=== PATIENT | male | born 1980 | race African-American/Black ===

== ENCOUNTER 2016-05-11 10:07 | Emergency (ER) | payer MEDICAID ==
[~2016-05-11] VITALS: Ht 162.6 cm; Wt 68.0 kg
[~2016-05-11 10:07] MED LIST: AMLO5TAB2 PO; ATOR40TA16 PO; DOXY1LIQ3 PO; HYDR12.56 PO; VENTAER INH; ZITHTAB PO
[2016-05-11 10:09] VITALS: BP 130/92; PULSE 86; RESP 16; TEMP 97.7; O2SAT 95
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
[2016-05-11] MEDS ORDERED: MECLIZINE HCL 25 MG TAB PO ONE (10:45)
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
[2016-05-11] MEDS ORDERED: CIPR0.3S RIGHT EAR (12:12)
[2016-05-11] MEDS ORDERED: MECL-62 PO (12:12)
[2016-05-11 12:33] VITALS: BP 133/88
== END 2016-05-11 12:34 | disposition home or self-care (01) ==
LOC: NEPE 10:07
DX: H72.91 Unspecified perforation of tympanic membrane, right ear (principal); Y04.2XXA Assault by strike against or bumped into by another person, initial encounter
CPT/HCPCS: 70450

== ENCOUNTER 2016-06-13 10:12 | Emergency (ER) | payer MEDICAID ==
[~2016-06-13] VITALS: Ht 162.6 cm; Wt 76.0 kg
[~2016-06-13 10:12] MED LIST changes: +CIPR0.3S RIGHT EAR; -DOXY1LIQ3 PO; +MECL-62 PO; -ZITHTAB PO
[2016-06-13 10:15] VITALS: BP 140/76; PULSE 100; RESP 20; TEMP 97.8; O2SAT 96
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
[2016-06-13] MEDS ORDERED: KETOROLAC TROMETHAMINE 60 MG/2 ML (IM) VIAL IM ONE (10:45)
[2016-06-13] MEDS ORDERED: TETANUS/DIPHTHERIA TOXOID PEDIATRIC 0.5 ML VIAL IM ONE (10:45)
[2016-06-13] MEDS ORDERED: TETANUS/DIPHTHERIA TOXOID ADULT 0.5 ML VIAL IM ONE (11:00)
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
[2016-06-13] MEDS ORDERED: IBUP800T23 PO (12:36)
[2016-06-13] MEDS ORDERED: TRAM50TA PO (12:36)
== END 2016-06-13 12:45 | disposition home or self-care (01) ==
LOC: NEPB 10:12
DX: S61.210A Laceration without foreign body of right index finger without damage to nail, initial encounter (principal); S97.81XA Crushing injury of right foot, initial encounter; I10 Essential (primary) hypertension; E78.00 Pure hypercholesterolemia, unspecified; F17.210 Nicotine dependence, cigarettes, uncomplicated; F17.220 Nicotine dependence, chewing tobacco, uncomplicated; Y03.0XXA Assault by being hit or run over by motor vehicle, initial encounter; W25.XXXA Contact with sharp glass, initial encounter; Z23 Encounter for immunization
CPT/HCPCS: 73630; 90471; 90714; 96372; 99283; E0113; J1885

== ENCOUNTER 2016-08-14 23:11 | Inpatient (IN) | payer MEDICAID ==
[~2016-08-14 23:11] MED LIST changes: +IBUP800T23 PO; +TRAM50TA PO
[2016-08-14] MEDS ORDERED: MIDAZOLAM HCL 5 MG/ML VIAL (1 ML) ONE ×2 (23:19→23:45)
[2016-08-14 23:38] LABS: AUTOMATED NEUTROPHIL # 2.8 TH/MM3 (1.8-7.7); BASOPHIL # 0.1 TH/MM3 (0-0.2); EOSINOPHIL % 0.8 % (0.0-4.0); HEMATOCRIT 40.9 % (39.0-51.0); HEMO FLAGS DIFF FINAL; LYMPH % 32.5 % (9.0-44.0); LYMPHOCYTE # 1.7 TH/MM3 (1.0-4.8); MEAN CELL VOLUME 91.6 FL (80.0-100.0); MEAN CORPUSCULAR HEMOGLOBIN 32.1 PG (27.0-34.0); MEAN CORPUSCULAR HGB CONC 35.1 % (32.0-36.0); MONO % 11.2 % (0.0-8.0); NEUT % 54.5 % (16.0-70.0); PLATELET COUNT 362 TH/MM3 (150-450); RED BLOOD COUNT 4.47 MIL/MM3 (4.50-5.90); RED CELL DISTRIBUTION WIDTH 12.4 % (11.6-17.2); WHITE BLOOD COUNT 5.1 TH/MM3 (4.0-11.0)
[2016-08-14 23:47] LABS: APTT (PATIENT) 23.3 SEC (24.3-30.1); INTERNATIONAL NORMALIZED RATIO 0.9 RATIO; PROTHROMBIN TIME - PATIENT 10.4 SEC (9.8-11.6)
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
[2016-08-14] MEDS ORDERED: IOHEXOL 350 MG/ML 10 ML VIAL (for RAD DIAG) IV ONE (23:49)
[2016-08-14 23:51] LABS: I-STAT POTASSIUM 3.6 MMOL/L (3.5-4.9)
[2016-08-14] MEDS ORDERED: fentaNYL CITRATE 250 MCG/5 ML AMP ONE (23:51)
[2016-08-14] MEDS ORDERED: FLUMAZENIL 0.5 MG/5 ML VIAL ONE (23:54)
[2016-08-15] VITALS (7 sets, daily range): BP systolic 114–141; BP diastolic 61–89; PULSE 79–110; RESP 16–20; TEMP 96.2–97.5; O2SAT 95–100
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
[2016-08-15] MEDS ORDERED: SODIUM CHLORIDE 0.9% FLUSH 10 ML FLUSH IV FLUSH PRN (00:15)
[2016-08-15] MEDS ORDERED: HYDROmorphone HCL PF 1 MG/ML VIAL IVP PRN ×3 (00:15→05:00)
[2016-08-15] MEDS ORDERED: CHLORHEXIDINE GLUCONATE 2 % 1 PACK (2 CLOTHS) TOP PRN (00:15)
[2016-08-15] MEDS ORDERED: MISCELLANEOUS NURSING INFORMATION XX SCH (00:15)
[2016-08-15] MEDS ORDERED: ONDANSETRON HCL 4 MG/2 ML VIAL IV PRN (00:15)
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
[2016-08-15] MEDS: LACTATED RINGER'S 1000 ML INJ 1,000 ML IV SCH ×2 (00:41→07:15)
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
[2016-08-15] MEDS ORDERED: OMEP40CA2 PO (01:16)
[2016-08-15] MEDS ORDERED: QUET150XR PO (01:16)
[2016-08-15] MEDS ORDERED: MECL-62 PO (01:16)
[2016-08-15] MEDS ORDERED: PRAZ5CAP PO (01:16)
[2016-08-15] MEDS ORDERED: BUSP10TA PO (01:16)
[2016-08-15] MEDS ORDERED: LITH300C2 PO (01:17)
[2016-08-15] MEDS ORDERED: TRAM50TA PO (01:17)
[2016-08-15] MEDS ORDERED: AMLO5TAB2 PO (01:17)
[2016-08-15] MEDS ORDERED: ATOR40TA16 PO (01:17)
[2016-08-15] MEDS ORDERED: EMTR1TAB PO (01:17)
[2016-08-15] MEDS ORDERED: RISP1TAB2 PO (01:17)
[2016-08-15] MEDS ORDERED: HYDR-2376 PO (01:51)
[2016-08-15] MEDS ORDERED: CIPR500T2 PO (01:51)
[2016-08-15 02:46] LABS: AMPHETAMINE, URINE NEG (NEG); BARBITURATES, URINE NEG (NEG); COCAINE, URINE POS (NEG)
[2016-08-15] MEDS ORDERED: CHLORHEXIDINE GLUCONATE 2 % 1 PACK (2 CLOTHS) TOP SCH (04:00)
[2016-08-15] MEDS: SODIUM CHLORIDE FLUSH BID IV FLUSH SCH ×2 (08:39→20:51)
[2016-08-15] MEDS: HYDROmorphone HCL PF 1 MG/ML VIAL IVP PRN ×4 (08:40→20:50)
[2016-08-15] MEDS ORDERED: DOCUSATE SODIUM 100 MG/10 ML UDC PO SCH (09:00)
--- NOTE | 2016-08-15 09:31 | RADRPT ---
EXAM DATE/TIME: 08/15/2016 09:10 [facility] COMPARISON: CHEST SINGLE AP, August 15, 2016, 0:01. INDICATIONS : Pneumothorax MEDICAL HISTORY : None. SURGICAL HISTORY : chest tube ENCOUNTER: Initial ACUITY: 1 day PAIN SCORE: 9/10 LOCATION: Bilateral chest FINDINGS: A single portable frontal view the chest shows a right thoracostomy tube. No pneumothorax. Patchy par enchymal densities within each lung base more pronounced on the right. Heart is normal in size. No ef fusions. Bony structures are unremarkable. CONCLUSION: No pneumothorax. Bibasilar atelectasis. Ben Waterman Jr., MD on August 15, 2016 at 9:29 Board Certified Radiologist. This report was verified electronically.
[2016-08-15] MEDS ORDERED: MECLIZINE HCL 25 MG TAB PO PRN (12:00)
[2016-08-15] MEDS: busPIRone HCL 10 MG TAB PO SCH ×2 (13:25→18:23)
[2016-08-15] MEDS: METHOCARBAMOL 500 MG TAB PO SCH ×2 (13:25→20:48)
[2016-08-15] MEDS: amLODIPine BESYLATE 5 MG TAB PO SCH (13:26)
[2016-08-15 13:55] LABS: BICARBONATE 22.7 MEQ/L (21.0-32.0)
[2016-08-15 15:03] LABS: HEMATOCRIT 37.8 % (39.0-51.0); MEAN CELL VOLUME 92.7 FL (80.0-100.0); MEAN CORPUSCULAR HEMOGLOBIN 31.8 PG (27.0-34.0); MEAN CORPUSCULAR HGB CONC 34.3 % (32.0-36.0); PLATELET COUNT 322 TH/MM3 (150-450); RED BLOOD COUNT 4.08 MIL/MM3 (4.50-5.90); RED CELL DISTRIBUTION WIDTH 12.6 % (11.6-17.2); REVIEW FLAG FINAL; WHITE BLOOD COUNT 9.8 TH/MM3 (4.0-11.0)
[2016-08-15] MEDS: risperiDONE 1 MG TAB PO SCH (20:47)
[2016-08-15] MEDS: QUEtiapine FUMARATE 25 MG TAB PO SCH (20:48)
[2016-08-15] MEDS: DOCUSATE SODIUM 50 MG/SENNA 8.6 MG TAB PO SCH (20:49)
[2016-08-15] MEDS: PRAZOSIN HCL 5 MG CAP PO SCH (20:49)
[2016-08-15] MEDS: ATORVASTATIN 40 MG TAB PO SCH (20:49)
[2016-08-16] VITALS (7 sets, daily range): BP systolic 104–134; BP diastolic 58–78; PULSE 82–107; RESP 18–20; TEMP 97–101.2; O2SAT 94–99
[2016-08-16] MEDS: HYDROmorphone HCL PF 1 MG/ML VIAL IVP PRN ×3 (04:48→12:55)
[2016-08-16] MEDS: METHOCARBAMOL 500 MG TAB PO SCH ×3 (05:18→21:17)
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
[2016-08-16] MEDS: amLODIPine BESYLATE 5 MG TAB PO SCH (08:20)
[2016-08-16] MEDS: QUEtiapine FUMARATE 25 MG TAB PO SCH ×2 (08:21→21:18)
[2016-08-16] MEDS: DOCUSATE SODIUM 50 MG/SENNA 8.6 MG TAB PO SCH ×2 (08:21→21:17)
[2016-08-16] MEDS: SODIUM CHLORIDE FLUSH BID IV FLUSH SCH ×2 (08:21→21:18)
[2016-08-16] MEDS: busPIRone HCL 10 MG TAB PO SCH ×3 (08:21→18:27)
[2016-08-16 08:36] LABS: BICARBONATE 25.1 MEQ/L (21.0-32.0); POTASSIUM 3.8 MEQ/L (3.5-5.1)
[2016-08-16 08:37] LABS: AUTOMATED NEUTROPHIL # 4.6 TH/MM3 (1.8-7.7); BASOPHIL % 0.5 % (0.0-2.0); EOSINOPHIL # 0.1 TH/MM3 (0-0.4); EOSINOPHIL % 1.3 % (0.0-4.0); HEMATOCRIT 37.2 % (39.0-51.0); HEMO FLAGS DIFF FINAL; LYMPHOCYTE # 1.3 TH/MM3 (1.0-4.8); MEAN CELL VOLUME 95.1 FL (80.0-100.0); MEAN CORPUSCULAR HEMOGLOBIN 31.4 PG (27.0-34.0); MONO % 9.9 % (0.0-8.0); NEUT % 69.3 % (16.0-70.0); PLATELET COUNT 278 TH/MM3 (150-450); RED BLOOD COUNT 3.91 MIL/MM3 (4.50-5.90); RED CELL DISTRIBUTION WIDTH 12.8 % (11.6-17.2); WHITE BLOOD COUNT 6.7 TH/MM3 (4.0-11.0)
[2016-08-16] MEDS ORDERED: DEXTROSE 50% IN WATER 50 ML VIAL(D50) IV PUSH PRN (12:15)
[2016-08-16] MEDS ORDERED: GLUCAGON 1 MG/ML VIAL OTHER PRN (12:15)
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
[2016-08-16] MEDS: oxyCODONE/ACETAMINOPHEN 5 MG/325 MG TAB PO PRN ×3 (14:11→22:45)
[2016-08-16] MEDS ORDERED: ACETAMINOPHEN 325 MG TAB PO PRN (15:00)
[2016-08-16] MEDS: INSULIN NovoLIN REGULAR SUPPLEMENTAL SCALE SQ SCH ×2 (16:00→21:00)
[2016-08-16] MEDS ORDERED: LACTULOSE SYRUP 20 GM/30 ML CUP PO ONE (16:15)
[2016-08-16] MEDS: FAMOTIDINE 20 MG TAB PO SCH (21:17)
[2016-08-16] MEDS: PRAZOSIN HCL 5 MG CAP PO SCH (21:17)
[2016-08-16] MEDS: risperiDONE 1 MG TAB PO SCH (21:17)
[2016-08-16] MEDS: ATORVASTATIN 40 MG TAB PO SCH (21:17)
[2016-08-17] VITALS (9 sets, daily range): BP systolic 105–134; BP diastolic 57–82; PULSE 84–94; RESP 18–20; TEMP 97.1–99.1; O2SAT 94–99
[2016-08-17] MEDS: METHOCARBAMOL 500 MG TAB PO SCH ×3 (05:24→20:45)
[2016-08-17] MEDS: oxyCODONE/ACETAMINOPHEN 5 MG/325 MG TAB PO PRN ×3 (05:30→20:47)
[2016-08-17] MEDS: INSULIN NovoLIN REGULAR SUPPLEMENTAL SCALE SQ SCH ×4 (05:30→20:46)
--- NOTE | 2016-08-17 06:34 | RADRPT ---
EXAM DATE/TIME: 08/17/2016 04:35 [facility] COMPARISON: CHEST SINGLE AP, August 16, 2016, 7:22. INDICATIONS : Shortness of breath, possible pulmonary disease. MEDICAL HISTORY : None. SURGICAL HISTORY : None. ENCOUNTER: Subsequent ACUITY: 3 days PAIN SCORE: 7/10 LOCATION: Right chest FINDINGS: A single view of the chest demonstrates persistent bibasilar opacities. Right-sided chest tube withou t pneumothorax. Osseous structures are intact. CONCLUSION: Persistent bibasilar opacities and right-sided chest tube. No pneumothorax. Compa Peterson MD on August 17, 2016 at 6:31 Board Certified Radiologist. This report was verified electronically.
[2016-08-17] MEDS: SODIUM CHLORIDE FLUSH BID IV FLUSH SCH ×2 (09:00→20:46)
[2016-08-17] MEDS: DOCUSATE SODIUM 50 MG/SENNA 8.6 MG TAB PO SCH ×2 (09:00→20:46)
[2016-08-17] MEDS: amLODIPine BESYLATE 5 MG TAB PO SCH (09:00)
[2016-08-17] MEDS: busPIRone HCL 10 MG TAB PO SCH ×3 (09:00→17:34)
[2016-08-17] MEDS ORDERED: PERC5TAB12 PO (11:18)
--- NOTE | 2016-08-17 13:07 | RADRPT ---
EXAM DATE/TIME: 08/17/2016 12:45 [facility] COMPARISON: CHEST SINGLE AP, August 17, 2016, 4:35. INDICATIONS : Post right chest tube removal MEDICAL HISTORY : None. SURGICAL HISTORY : None. ENCOUNTER: Initial ACUITY: 1 day PAIN SCORE: 8/10 LOCATION: Right chest FINDINGS: A single AP erect portable view of the chest was obtained and demonstrates interval removal of the pr eviously noted right-sided chest tube. There is a minimal right apical pneumothorax measuring up to a pproximately 1 cm. Is hazy opacity again noted in the perihilar regions and both lung bases. The hear t size remains at the upper limits of normal. Costophrenic angles appear minimally blunted. There is mild overlying subcutaneous emphysema. CONCLUSION: 1. Interval removal of right-sided chest tube with minimal right apical pneumothorax. 2. Hazy opacity remains in both lung bases. Gus Kuhn MD on August 17, 2016 at 13:02 Board Certified Radiologist. This report was verified electronically.
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
[2016-08-17] MEDS ORDERED: METH500T3 PO (14:21)
[2016-08-17] MEDS: FAMOTIDINE 20 MG TAB PO SCH ×2 (15:41→20:45)
[2016-08-17] MEDS: QUEtiapine FUMARATE 25 MG TAB PO SCH ×3 (15:42→20:45)
[2016-08-17] MEDS: PRAZOSIN HCL 5 MG CAP PO SCH (20:45)
[2016-08-17] MEDS: risperiDONE 1 MG TAB PO SCH (20:46)
[2016-08-17] MEDS: ATORVASTATIN 40 MG TAB PO SCH (20:46)
[2016-08-18 00:57] VITALS: BP 122/66; PULSE 87; RESP 20; TEMP 97.3; O2SAT 97
[2016-08-18 05:20] VITALS: BP 116/67; PULSE 80; RESP 20; TEMP 98; O2SAT 97
[2016-08-18] MEDS: METHOCARBAMOL 500 MG TAB PO SCH ×2 (05:29→12:11)
[2016-08-18] MEDS: INSULIN NovoLIN REGULAR SUPPLEMENTAL SCALE SQ SCH ×2 (05:29→11:00)
[2016-08-18] MEDS: oxyCODONE/ACETAMINOPHEN 5 MG/325 MG TAB PO PRN (05:29)
--- NOTE | 2016-08-18 06:05 | RADRPT ---
EXAM DATE/TIME: 08/18/2016 05:05 [facility] COMPARISON: CHEST SINGLE AP, August 17, 2016, 12:45. INDICATIONS : Follow up pneumothorax. MEDICAL HISTORY : None. SURGICAL HISTORY : None. ENCOUNTER: Subsequent ACUITY: 3 days PAIN SCORE: 6/10 LOCATION: Bilateral chest FINDINGS: A single view of the chest demonstrates bibasilar airspace disease. Postsurgical changes. Tiny right apical pneumothorax. Osseous structures are intact. CONCLUSION: 1. Tiny right apical pneumothorax. 2. Bibasilar airspace disease. Compa Peterson MD on August 18, 2016 at 6:02 Board Certified Radiologist. This report was verified electronically.
[2016-08-18 08:00] VITALS: BP 128/76; PULSE 84; RESP 18; TEMP 97.8; O2SAT 97
[2016-08-18] MEDS: amLODIPine BESYLATE 5 MG TAB PO SCH (08:28)
[2016-08-18] MEDS: FAMOTIDINE 20 MG TAB PO SCH (08:28)
[2016-08-18] MEDS: busPIRone HCL 10 MG TAB PO SCH ×2 (08:28→12:11)
[2016-08-18] MEDS: QUEtiapine FUMARATE 25 MG TAB PO SCH (08:29)
[2016-08-18] MEDS: DOCUSATE SODIUM 50 MG/SENNA 8.6 MG TAB PO SCH (08:29)
[2016-08-18] MEDS: SODIUM CHLORIDE FLUSH BID IV FLUSH SCH (08:29)
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
== END 2016-08-18 17:03 | disposition home or self-care (01) | DRG 199 ==
LOC: NEPI 23:11 → EDBD 23:50 → MERGE 23:50 → NEDA 23:50 → N05B 08-15 03:18
PROVIDERS: ADMIT Surgery Trauma Surgery; ATTEND Surgery Trauma Surgery
PROC: 0W9930Z Drainage of Right Pleural Cavity with Drainage Device, Percutaneous Approach (ICD-10-PCS; principal; 2016-08-14)
PROC: 0HQ5XZZ Repair Chest Skin, External Approach (ICD-10-PCS; 2016-08-14)
PROC: 0W9930Z Drainage of Right Pleural Cavity with Drainage Device, Percutaneous Approach (ICD-10-PCS; 2016-08-15)
PROC: 0CQ1XZZ Repair Lower Lip, External Approach (ICD-10-PCS; 2016-08-15)
DX: S27.0XXA Traumatic pneumothorax, initial encounter (principal); S21.311A Laceration without foreign body of right front wall of thorax with penetration into thoracic cavity, initial encounter; S01.511A Laceration without foreign body of lip, initial encounter; T79.7XXA Traumatic subcutaneous emphysema, initial encounter; X99.1XXA Assault by knife, initial encounter; I10 Essential (primary) hypertension; E78.5 Hyperlipidemia, unspecified; E11.9 Type 2 diabetes mellitus without complications; F32.9 Major depressive disorder, single episode, unspecified
CPT/HCPCS: 12002; 32551; 71010; 71260; 80048; 80178; 80307; 82435; 82565; 82947; 82948; 84132; 84295; 84520; 85025; 85027; 85610; 85730; 86850; 86900; 86901; 94150; 96374; 96375; 96376; 99291; G0390; J1170; J2250; J3010; J7120; Q9967

== ENCOUNTER → 2016-08-26 | Outpatient (CLI) | payer MEDICAID ==
[~2016-08-26] MED LIST changes: +BUSP10TA PO; +EMTR1TAB PO; +LITH300C2 PO; +METH500T3 PO; +OMEP40CA2 PO; +PERC5TAB12 PO; +PRAZ5CAP PO; +QUET150XR PO; +RISP1TAB2 PO
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
== END ==
LOC: HRAD 13:39 → MERGE 13:39
PROVIDERS: ATTEND Family Medicine
DX: J93.9 Pneumothorax, unspecified (principal)
CPT/HCPCS: 71020

== ENCOUNTER 2016-12-17 16:34 | Emergency (ER) | payer MEDICAID ==
[2016-12-17 16:37] VITALS: BP 161/98; PULSE 85; RESP 15; TEMP 98.4; O2SAT 98
[2016-12-17] MEDS ORDERED: AMOX500C PO (18:04)
[2016-12-17] MEDS ORDERED: PERI0.126 SWISH-SPIT (18:05)
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
== END 2016-12-17 18:57 | disposition home or self-care (01) ==
LOC: NEPK 16:34
DX: S69.91XA Unspecified injury of right wrist, hand and finger(s), initial encounter (principal); K02.9 Dental caries, unspecified; M13.80 Other specified arthritis, unspecified site; F32.9 Major depressive disorder, single episode, unspecified; E78.00 Pure hypercholesterolemia, unspecified; E11.9 Type 2 diabetes mellitus without complications; I10 Essential (primary) hypertension; F17.220 Nicotine dependence, chewing tobacco, uncomplicated; W23.0XXA Caught, crushed, jammed, or pinched between moving objects, initial encounter
CPT/HCPCS: 73130; 99283

== ENCOUNTER 2017-07-05 15:29 | Observation (INO) | payer MEDICAID ==
[~2017-07-05] VITALS: Ht 162.6 cm; Wt 82.0 kg
[~2017-07-05 15:29] MED LIST changes: -CIPR0.3S RIGHT EAR; -EMTR1TAB PO; -IBUP800T23 PO; -MECL-62 PO; -METH500T3 PO; -OMEP40CA2 PO; -PERC5TAB12 PO; -PRAZ5CAP PO; -TRAM50TA PO; +TRUV200300 PO
[2017-07-05 15:37] VITALS: BP 154/93; PULSE 91; RESP 17; TEMP 98.9; O2SAT 99
[2017-07-05 16:12] LABS: AUTOMATED NEUTROPHIL # 2.3 TH/MM3 (1.8-7.7); BASOPHIL % 0.9 % (0.0-2.0); EOSINOPHIL # 0.1 TH/MM3 (0-0.4); EOSINOPHIL % 2.4 % (0.0-4.0); HEMATOCRIT 46.4 % (39.0-51.0); HEMOGLOBIN 16.5 GM/DL (13.0-17.0); LYMPH % 42.3 % (9.0-44.0); LYMPHOCYTE # 2.2 TH/MM3 (1.0-4.8); MEAN CORPUSCULAR HEMOGLOBIN 33.9 PG (27.0-34.0); MEAN CORPUSCULAR HGB CONC 35.6 % (32.0-36.0); MEAN PLATELET VOLUME 8.3 FL (7.0-11.0); MONO % 10.8 % (0.0-8.0); MONOCYTE # 0.6 TH/MM3 (0-0.9); NEUT % 43.6 % (16.0-70.0); PLATELET COUNT 368 TH/MM3 (150-450); RED BLOOD COUNT 4.88 MIL/MM3 (4.50-5.90); RED CELL DISTRIBUTION WIDTH 12.9 % (11.6-17.2); WHITE BLOOD COUNT 5.2 TH/MM3 (4.0-11.0)
[2017-07-05 16:24] LABS: PROTHROMBIN TIME - PATIENT 9.8 SEC (9.8-11.6)
[2017-07-05] MEDS ORDERED: SODIUM CHLOR 0.9% 1000 ML INJ 1,000 ML IV SCH (16:24)
[2017-07-05 16:28] VITALS: BP 146/81; PULSE 86; RESP 13; O2SAT 99
[2017-07-05] MEDS ORDERED: TRUV200300 PO (16:28)
--- NOTE | 2017-07-05 16:31 | PD ---
HPI Chief Complaint: Neuro Symptoms/ Deficits Time Seen by Provider: 16:09 Travel History International Travel<30 days: No Contact w/Intl Traveler<30days: No Traveled to known affect area: No History of Present Illness HPI 37-year-old male with a history of hypertension, depression and anxiety presents to the emergency department with complaints of lightheadedness, trouble speaking, drooling, visual changes, joint pains, occasional heart palpitations, subjective fever, nausea, and constipation for approximately 2 days. States he woke up with these symptoms. He describes his chest discomfort as squeezing and currently denies any symptoms. Says earlier he says it was 8/10. Denies shortness of breath. Patient says he has one sexual partner he has not had any sexual contacts this month. Patient states he is . Denies penile discharge or painful urination. PFSH Past Medical History Arthritis: Yes Depression: Yes Cancer: No Cardiovascular Problems: Yes High Cholesterol: Yes Chest Pain: Yes Diabetes: Yes Diminished Hearing: Yes (RIGHT EAR) Genitourinary: No Headaches: Yes Hypertension: Yes Neurologic: No Psychiatric: Yes Reproductive: No Immunizations Current: Yes Migraines: Yes Seizures: No Past Surgical History Abdominal Surgery: Yes (appendix) Appendectomy: Yes Ear Surgery: Yes Other Surgery: Yes (REPAIR OF DOG BITE LEFT ARM AGE 13) Social History Alcohol Use: No Tobacco Use: Yes (dip) Substance Use: No (denies) Allergies-Medications (Allergen,Severity, Reaction): Coded Allergies: aspirin (Unverified Allergy, Severe, 07/05/17) SHORTNESS OF BREATH/"THROAT SWELLING" Reported Meds & Prescriptions Reported Meds & Active Scripts Active Reported Risperidone 1 Mg Tab 1 Mg PO HS [place] Carbonate 300 Mg Cap 300 Mg PO BID Buspirone (Buspirone HCl) 10 Mg Tab 10 Mg PO TID Seroquel XR (Quetiapine Fumarate) 150 Mg Tab 150 Mg PO HS Hydrochlorothiazide 12.5 Mg Tab 12.5 Mg PO DAILY Atorvastatin (Atorvastatin Calcium) 40 Mg Tab 40 Mg PO HS Amlodipine (Amlodipine Besylate) 5 Mg Tab 5 Mg PO DAILY Review of Systems Except as stated in HPI: all other systems reviewed are Neg Physical Exam Narrative GENERAL: Well-developed, well-nourished in no apparent distress, resting comfortably in bed, talking on the phone at initial evaluation SKIN: Focused skin assessment warm/dry. HEAD: Atraumatic. Normocephalic. EYES: Pupils equal and round. No scleral icterus. No injection or drainage. ENT: No nasal bleeding or discharge. Mucous membranes pink and moist. NECK: Trachea midline. No JVD. CARDIOVASCULAR: Regular rate and rhythm. No murmur appreciated. RESPIRATORY: No accessory muscle use. Clear to auscultation. Breath sounds equal bilaterally. GASTROINTESTINAL: Abdomen distended,, no organomegaly. Mild TTP to right upper quadrants. No CVA tenderness MUSCULOSKELETAL: No obvious deformities. No clubbing. No cyanosis. No edema. NEUROLOGICAL: Awake and alert. No obvious cranial nerve deficits. Motor grossly within normal limits. Normal speech. No drooling. No pronator drift. No one-sided weakness or facial drooping. PSYCHIATRIC: Appropriate mood and affect; insight and judgment normal. Data Data Last Documented VS Vital Signs Date Time Temp Pulse Resp B/P (MAP) Pulse Ox O2 Delivery O2 Flow Rate FiO2 07/05/17 19:17 90 18 147/91 (109) 100 Room Air 07/05/17 15:37 98.9 Orders Orders Electrocardiogram (07/05/17 15:40) Complete Blood Count With Diff (07/05/17 15:40) Basic Metabolic Panel (Bmp) (07/05/17 15:40) Ckmb (Isoenzyme) Profile (07/05/17 15:40) Troponin I (07/05/17 15:40) Prothrombin Time / Inr (Pt) (07/05/17 15:40) Bedside Glucose MARJAN.CSUGAR (07/05/17 15:40) Chest, Pa & Lat (07/05/17 15:40) Act Partial Throm Time (Ptt) (07/05/17 16:24) Urinalysis - C+S If Indicated (07/05/17 16:24) Iv Access Insert/Monitor (07/05/17 16:24) Ecg Monitoring (07/05/17 16:24) Oximetry (07/05/17 16:24) Sodium Chlor 0.9% 1000 Ml Inj (Ns 1000 M (07/05/17 16:24) [place] (Li) (07/05/17 16:24) Drug Screen, Random Urine (07/05/17 16:24) Gc And Chlamydia Pcr (07/05/17 16:31) Sodium Chloride 0.9% Flush (Ns Flush) (07/05/17 16:45) CKMB (07/05/17 15:55) CKMB% (07/05/17 15:55) Albumin (07/05/17 15:55) Alkaline Phosphatase (07/05/17 15:55) Alt (Sgpt) (07/05/17 15:55) Ast (Sgot) (07/05/17 15:55) Lipase (07/05/17 15:55) Total Bilirubin (07/05/17 15:55) Total Protein (07/05/17 15:55) Thyroid Stimulating Hormone (07/05/17 15:55) Ct Abd/Pel W Iv Contrast(Rout) (07/05/17 ) Ondansetron Inj (Zofran Inj) (07/05/17 20:04) Iohexol 350 Inj (Omnipaque 350 Inj) (07/05/17 20:00) Ondansetron Inj (Zofran Inj) (07/05/17 20:30) Admit Order (Ed Use Only) (07/05/17 20:49) Morphine Inj (Morphine Inj) (07/05/17 21:00) Labs Laboratory Tests Test 07/05/17 15:55 07/05/17 16:49 White Blood Count 5.2 TH/MM3 Red Blood Count 4.88 MIL/MM3 Hemoglobin 16.5 GM/DL Hematocrit 46.4 % Mean Corpuscular Volume 95.0 FL Mean Corpuscular Hemoglobin 33.9 PG Mean Corpuscular Hemoglobin Concent 35.6 % Red Cell Distribution Width 12.9 % Platelet Count 368 TH/MM3 Mean Platelet Volume 8.3 FL Neutrophils (%) (Auto) 43.6 % Lymphocytes (%) (Auto) 42.3 % Monocytes (%) (Auto) 10.8 % Eosinophils (%) (Auto) 2.4 % Basophils (%) (Auto) 0.9 % Neutrophils # (Auto) 2.3 TH/MM3 Lymphocytes # (Auto) 2.2 TH/MM3 Monocytes # (Auto) 0.6 TH/MM3 Eosinophils # (Auto) 0.1 TH/MM3 Basophils # (Auto) 0.0 TH/MM3 CBC Comment DIFF FINAL Differential Comment Prothrombin Time 9.8 SEC Prothromb Time International Ratio 1.0 RATIO Activated Partial Thromboplast Time 23.0 SEC Blood Urea Nitrogen 11 MG/DL Creatinine 1.09 MG/DL Random Glucose 132 MG/DL Total Protein 7.7 GM/DL Albumin 3.5 GM/DL Calcium Level 8.6 MG/DL Alkaline Phosphatase 67 U/L Aspartate Amino Transf (AST/SGOT) 34 U/L Alanine Aminotransferase (ALT/SGPT) 46 U/L Total Bilirubin 0.3 MG/DL Sodium Level 138 MEQ/L Potassium Level 3.7 MEQ/L Chloride Level 102 MEQ/L Carbon Dioxide Level 23.6 MEQ/L Anion Gap 12 MEQ/L Estimat Glomerular Filtration Rate 92 ML/MIN Total Creatine Kinase 149 U/L Creatine Kinase MB 1.0 NG/ML Troponin I LESS THAN 0.02 NG/ML Lipase 202 U/L Thyroid Stimulating Hormone 3rd Gen 1.170 uIU/ML Urine Color YELLOW Urine Turbidity CLEAR Urine pH 5.0 Urine Specific [place] 1.016 Urine Protein NEG mg/dL Urine Glucose (UA) NEG mg/dL Urine Ketones NEG mg/dL Urine Occult Blood NEG Urine Nitrite NEG Urine Bilirubin NEG Urine Urobilinogen LESS THAN 2.0 MG/DL Urine Leukocyte Esterase NEG Urine RBC LESS THAN 1 /hpf Microscopic Urinalysis Comment CULT NOT INDICATED Urine Opiates Screen NEG Urine Barbiturates Screen NEG Urine Amphetamines Screen NEG Urine Benzodiazepines Screen NEG [place] Level LESS THAN 0.1 MEQ/L Urine Cocaine Screen NEG Urine Cannabinoids Screen NEG Chlamydia trachomatis DNA (PCR) NOT DETECTED Neisseria gonorrhoeae DNA (PCR) NOT DETECTED MDM Medical Decision Making Medical Screen Exam Complete: Yes Emergency Medical Condition: Yes Differential Diagnosis Accelerated hypertension, hypertensive emergency, hypertensive urgency, malingering, Amrcio's syndrome Narrative Course 37-year-old male presents to the emergency department for multiple medical complaints to include heart palpitations, chest discomfort, nausea, vomiting. Past medical history includes hypertension, hyperlipidemia. Says his father has a history of a CVA. States both parents of pacemakers. Labs and imaging studies ordered. EKG shows sinus rhythm at rate 84, short FL at .115. Referencing EKG from 2015 shows T wave changes. Vital signs stable. CBC & BMP Diagram 07/05/17 15:55 Total Protein 7.7, Albumin 3.5, Calcium Level 8.6, Alkaline Phosphatase 67, Aspartate Amino Transf (AST/SGOT) 34, Alanine Aminotransferase (ALT/SGPT) 46, Total Bilirubin 0.3 Cardiac enzymes negative. TSH 1.170. Urinalysis unremarkable. [place] levels less than 0.1 As I was discussing with the patient the findings of the labs and imaging studies today, he says that he is having right abdominal pain. Says the pain started 2 days ago when his chest tightness started. CT abdomen pelvis was ordered results stated "small contracted gallbladder otherwise negative". Morphine for pain, zofran for nausea. Patient is not likely taking his medications as prescribed. I suspect there is a malingering component to his visit today however, because of the EKG changes from 2014 and complaints of chest pain along with having risk factors, advised patient stay for observation. Patient will be admitted for atypical chest pain, nausea, vomiting. Patient will not go to the chest pain center as he has right sided abdominal pain without apparent etiology. At the time of admission, patient denies any chest discomfort, shortness of breath. His focus is only on his right abdominal pain. Diagnosis Primary Impression: Atypical chest pain Additional Impressions: Vomiting Qualified Codes: R11.2 - Nausea with vomiting, unspecified Abdominal pain Qualified Codes: R10.12 - Left upper quadrant pain Admitting Information Admitting Physician Requests: Admit Condition: Stable Winsome Rice Jul 05, 2017 16:31
[2017-07-05 16:36] LABS: BICARBONATE 23.6 MEQ/L (21.0-32.0); BLOOD UREA NITROGEN 11 MG/DL (7-18); CALCIUM 8.6 MG/DL (8.5-10.1); CHLORIDE 102 MEQ/L (98-107); CREATININE 1.09 MG/DL (0.60-1.30); GLOMERULAR FILTRATION RATE 92 ML/MIN (>89); GLUCOSE,RANDOM 132 MG/DL (74-106); SODIUM (NA) 138 MEQ/L (136-145)
[2017-07-05 16:39] LABS: TROPONIN I LESS THAN 0.02 NG/ML (0.02-0.05)
[2017-07-05] MEDS ORDERED: SODIUM CHLORIDE 0.9% FLUSH 10 ML FLUSH IVF PRN (16:45)
--- NOTE | 2017-07-05 16:57 | RADRPT ---
EXAM DATE/TIME: 07/05/2017 15:57 [facility] COMPARISON: CHEST PA & LAT, August 26, 2016, 13:57. INDICATIONS : Chest tightness, shortness of breath, lightheaded, dizziness, and cough. MEDICAL HISTORY : None. SURGICAL HISTORY : None. ENCOUNTER: Initial ACUITY: 2 days PAIN SCORE: 2/10 LOCATION: Bilateral chest FINDINGS: PA and lateral views of the chest demonstrate the lungs to be symmetrically aerated without evidence of mass, infiltrate or effusion. The cardiomediastinal contours are unremarkable. Osseous structure s are intact. CONCLUSION: No acute disease. Rufus Garland MD FACR on July 05, 2017 at 16:54 Board Certified Radiologist. This report was verified electronically.
[2017-07-05 17:26] LABS: ALBUMIN 3.5 GM/DL (3.4-5.0); AST (GOT) 34 U/L (15-37)
[2017-07-05 17:27] LABS: ALKALINE PHOSPHATASE 67 U/L (45-117); TOTAL BILIRUBIN ADULT 0.3 MG/DL (0.2-1.0); TOTAL PROTEIN 7.7 GM/DL (6.4-8.2)
[2017-07-05 17:34] LABS: ALT (GPT) 46 U/L (12-78)
[2017-07-05 19:12] LABS: BILIRUBIN, URINE NEG (NEG); BLOOD, URINE NEG (NEG); GLUCOSE,URINE NEG (NEG); KETONE, URINE NEG (NEG); NITRITE,URINE NEG (NEG); URINE COLOR YELLOW (YELLW/STRAW); URINE LEUKOCYTE ESTERASE NEG (NEG)
[2017-07-05 19:17] VITALS: BP 147/91; PULSE 90; RESP 18; O2SAT 100
[2017-07-05] MEDS ORDERED: IOHEXOL 350 MG/ML 10 ML VIAL (for RAD DIAG) IVCONTRAST ONE ×2 (20:00→20:52)
[2017-07-05] MEDS ORDERED: ONDANSETRON HCL 4 MG/2 ML VIAL ONE (20:04)
--- NOTE | 2017-07-05 20:09 | EKG ---
Date Performed: 07/05/2017 Time Performed: 15:47:57 PTAGE: 37 years EKG: Sinus rhythm WITH SHORT IN INTERVAL MODERATE T-WAVE ABNORMALITY, CONSIDER ANTEROLATERAL ISCHEMIA MODERATE T-WAVE ABNORMALITY, CONSIDER INFERIOR ISCHEMIA ABNORMAL ECG Since the PREVIOUS TRACING , no significant change noted PREVIOUS TRACIN09/22/2014 18.44 DOCTOR: Danette Larios Interpretating Date/Time 07/05/2017 20:07:55
--- NOTE | 2017-07-05 20:20 | RADRPT ---
EXAM DATE/TIME: 07/05/2017 19:53 [facility] COMPARISON: No previous studies available for comparison. INDICATIONS : Right upper abdomen pain for one week. IV CONTRAST: 87 cc Omnipaque 350 (iohexol) IV ORAL CONTRAST: No oral contrast ingested. RADIATION DOSE: 8.79 CTDIvol (mGy) MEDICAL HISTORY : Hypertension. SURGICAL HISTORY : Appendectomy. ENCOUNTER: Initial ACUITY: 1 week PAIN SCALE: 8/10 LOCATION: Right upper quadrant TECHNIQUE: Volumetric scanning of the abdomen and pelvis was performed. Using automated exposure control and ad justment of the mA and/or kV according to patient size, radiation dose was kept as low as reasonably achievable to obtain optimal diagnostic quality images. DICOM format image data is available electro nically for review and comparison. FINDINGS: LOWER LUNGS: The visualized lower lungs are clear. LIVER: Homogeneous density without lesion. There is no dilation of the biliary tree. Small contracted gall bladder No calcified gallstones. SPLEEN: Normal size without lesion. PANCREAS: Within normal limits. KIDNEYS: Nonrotated right kidney, normal left kidney. There is no mass, stone or hydronephrosis. ADRENAL GLANDS: Within normal limits. VASCULAR: There is no aortic aneurysm. BOWEL/MESENTERY: The stomach, small bowel, and colon demonstrate no acute abnormality. There is no free intraperitone al air or fluid. ABDOMINAL WALL: Within normal limits. RETROPERITONEUM: There is no lymphadenopathy. BLADDER: No wall thickening or mass. REPRODUCTIVE: Within normal limits. INGUINAL: There is no lymphadenopathy or hernia. 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 CONCLUSION: Small contracted gallbladder otherwise negative Rufus Garland MD FACR on July 05, 2017 at 20:14 Board Certified Radiologist. This report was verified electronically.
[2017-07-05] MEDS ORDERED: ONDANSETRON HCL 4 MG/2 ML VIAL IV PUSH ONE (20:30)
[2017-07-05] MEDS ORDERED: ACETAMINOPHEN/HYDROcodone 325 MG/5 MG TAB PO PRN (20:45)
[2017-07-05] MEDS ORDERED: ONDANSETRON HCL 4 MG/2 ML VIAL IVP PRN (20:45)
[2017-07-05] MEDS ORDERED: BISACODYL 10 MG SUPP RECTAL PRN (20:45)
[2017-07-05] MEDS ORDERED: ACETAMINOPHEN 325 MG TAB PO PRN (20:45)
[2017-07-05] MEDS ORDERED: LACTULOSE SYRUP 20 GM/30 ML CUP PO PRN (20:45)
[2017-07-05] MEDS ORDERED: MORPHINE SULFATE 2 MG/ML INJ IV PUSH PRN (20:45)
[2017-07-05] MEDS ORDERED: MAGNESIUM HYDROXIDE SUSP 30 ML CUP PO PRN (20:45)
[2017-07-05] MEDS ORDERED: SENNOSIDES 8.6 MG TAB PO PRN (20:45)
[2017-07-05] MEDS ORDERED: SODIUM CHLORIDE 0.9% FLUSH 10 ML FLUSH IV FLUSH PRN (20:45)
--- NOTE | 2017-07-05 20:52 | HHI.HP ---
HPI Service [facility] Primary Care Physician Tyson Matias D.O. Admission Diagnosis atypical chest pain, r/o ACS, N/V, abdominal pain Diagnoses: (1) Chest pain Diagnosis: Principal (2) Abdominal pain Diagnosis: Principal Travel History International Travel<30 Days: No Contact w/Intl Traveler <30 Da: No Traveled to Known Affected Are: No History of Present Illness This is a 37-year-old male with a PMH of Anxiety, Depression, Bipolar Disorder, HTN and Hyperlipidemia who presented to the ER with multiple complaints including dizziness, palpitations, chest pain and abdominal pain. States symptoms have been intermittent for the last 2 days. Chest pain is substernal, intermittent, 8/10, non-radiating. Abdominal pain is in RUQ, severe, 9/10, associated w/ nausea, no vomiting. Reports h/o renal stones, feels symptoms are similar. On arrival, BP 154/93, HR 91, O2 sat 99% RA, Afebrile. CBC essentially unremarkable. Chemistry unremarkable. Troponin negative. INR 1.0. UA negative. Urine Drug Screen negative. [place] less than 0.1. CXR with no acute findings. CT Abdomen/Pelvis with small contracted gallbladder. Of note, patient is on Truvada for prophylaxis as is HIV+. LFTs normal. Review of Systems Except as stated in HPI: all other systems reviewed are Neg ROS: 14 point review of systems otherwise negative. Past Family Social History Past Medical History PMH: Anxiety, Depression, Bipolar Disorder, HTN and Hyperlipidemia Past Surgical History PAST SURGICAL HISTORY: Appendectomy, Ear Surgery Allergies: Coded Allergies: aspirin (Unverified Allergy, Severe, 07/05/17) SHORTNESS OF BREATH/"THROAT SWELLING" Family History PAST FAMILY HISTORY: Reviewed. No h/o DM or CAD Social History PAST SOCIAL HISTORY: Negative for alcohol. Positive for tobacco, dip. Negative for drugs. Physical Exam Vital Signs Vital Signs Date Time Temp Pulse Resp B/P (MAP) Pulse Ox O2 Delivery O2 Flow Rate FiO2 07/05/17 19:17 90 18 147/91 (109) 100 Room Air 07/05/17 16:28 86 13 146/81 (102) 99 Room Air 07/05/17 15:37 98.9 91 17 154/93 (113) 99 Physical Exam PE: GENERAL: Pleasant young black male in no acute distress. HEENT: PERRLA, EOMI. No scleral icterus or conjunctival pallor. No lid lag or facial droop. CARDIOVASCULAR: Regular rate and rhythm. No obvious murmurs to auscultation. No chest tenderness to palpation. RESPIRATORY: No obvious rhonchi or wheezing. Clear to auscultation. Breath sounds equal bilaterally. GASTROINTESTINAL: Abdomen soft, tenderness to palpation RUQ, nondistended. BS normal. MUSCULOSKELETAL: Extremities without clubbing, cyanosis, or edema. No obvious deformities. NEUROLOGICAL: Awake, alert and oriented x4. No focal neurologic deficits. Moving both upper and lower extremities spontaneously. Laboratory Laboratory Tests Test 07/05/17 15:55 07/05/17 16:49 White Blood Count 5.2 Red Blood Count 4.88 Hemoglobin 16.5 Hematocrit 46.4 Mean Corpuscular Volume 95.0 Mean Corpuscular Hemoglobin 33.9 Mean Corpuscular Hemoglobin Concent 35.6 Red Cell Distribution Width 12.9 Platelet Count 368 Mean Platelet Volume 8.3 Neutrophils (%) (Auto) 43.6 Lymphocytes (%) (Auto) 42.3 Monocytes (%) (Auto) 10.8 Eosinophils (%) (Auto) 2.4 Basophils (%) (Auto) 0.9 Neutrophils # (Auto) 2.3 Lymphocytes # (Auto) 2.2 Monocytes # (Auto) 0.6 Eosinophils # (Auto) 0.1 Basophils # (Auto) 0.0 CBC Comment DIFF FINAL Differential Comment Prothrombin Time 9.8 Prothromb Time International Ratio 1.0 Activated Partial Thromboplast Time 23.0 Blood Urea Nitrogen 11 Creatinine 1.09 Random Glucose 132 Total Protein 7.7 Albumin 3.5 Calcium Level 8.6 Alkaline Phosphatase 67 Aspartate Amino Transf (AST/SGOT) 34 Alanine Aminotransferase (ALT/SGPT) 46 Total Bilirubin 0.3 Sodium Level 138 Potassium Level 3.7 Chloride Level 102 Carbon Dioxide Level 23.6 Anion Gap 12 Estimat Glomerular Filtration Rate 92 Total Creatine Kinase 149 Creatine Kinase MB 1.0 Troponin I LESS THAN 0.02 Lipase 202 Thyroid Stimulating Hormone 3rd Gen 1.170 Urine Color YELLOW Urine Turbidity CLEAR Urine pH 5.0 Urine Specific [place] 1.016 Urine Protein NEG Urine Glucose (UA) NEG Urine Ketones NEG Urine Occult Blood NEG Urine Nitrite NEG Urine Bilirubin NEG Urine Urobilinogen LESS THAN 2.0 Urine Leukocyte Esterase NEG Urine RBC LESS THAN 1 Microscopic Urinalysis Comment CULT NOT INDICATED Urine Opiates Screen NEG Urine Barbiturates Screen NEG Urine Amphetamines Screen NEG Urine Benzodiazepines Screen NEG [place] Level LESS THAN 0.1 Urine Cocaine Screen NEG Urine Cannabinoids Screen NEG Result Diagram: 07/05/17 1555 07/05/17 155 Caprini VTE Risk Assessment Caprini VTE Risk Assessment: No/Low Risk (score <= 1) Caprini Risk Assessment Model Point Value = 1 Point Value = 2 Point Value = 3 Point Value = 5 Age 41-60 Minor surgery BMI > 25 kg/m2 Swollen legs Varicose veins or History of unexplained or recurrent spontaneous Oral contraceptives or hormone replacement Sepsis (< 1 month) Serious lung disease, including pneumonia (< 1 month) Abnormal pulmonary function Acute myocardial infarction Congestive heart failure (< 1 month) History of inflammatory bowel disease Medical patient at bed rest Age 61-74 Arthroscopic surgery Major open surgery (> 45 min) Laparoscopic surgery (> 45 min) Malignancy Confined to bed (> 72 hours) Immobilizing plaster cast Central venous access Age >= 75 History of VTE Family history of VTE Factor V Leiden Prothrombin [id number] Lupus anticoagulant Anticardiolipin antibodies Elevated serum homocysteine Heparin-induced thrombocytopenia Other congenital or acquired thrombophilia Stroke (< 1 month) Elective arthroplasty Hip, pelvis, or leg fracture Acute spinal cord injury (< 1 month) Prophylaxis Regimen Total Risk Factor Score Risk Level Prophylaxis Regimen 0-1 Low Early ambulation 2 Moderate Order ONE of the following: *Sequential Compression Device (SCD) *Heparin 5000 units SQ BID 3-4 Higher Order ONE of the following medications: *Heparin 5000 units SQ TID *Enoxaparin/Lovenox 40 mg SQ daily (WT < 150 kg, CrCl > 30 mL/min) *Enoxaparin/Lovenox 30 mg SQ daily (WT < 150 kg, CrCl > 10-29 mL/min) *Enoxaparin/Lovenox 30 mg SQ BID (WT < 150 kg, CrCl > 30 mL/min) AND/OR *Sequential Compression Device (SCD) 5 or more Highest Order ONE of the following medications: *Heparin 5000 units SQ TID (Preferred with Epidurals) *Enoxaparin/Lovenox 40 mg SQ daily (WT < 150 kg, CrCl > 30 mL/min) *Enoxaparin/Lovenox 30 mg SQ daily (WT < 150 kg, CrCl > 10-29 mL/min) *Enoxaparin/Lovenox 30 mg SQ BID (WT < 150 kg, CrCl > 30 mL/min) AND *Sequential Compression Device (SCD) Assessment and Plan Problem List: (1) Chest pain ICD Code: R07.9 - Chest pain, unspecified (2) Abdominal pain ICD Code: R10.9 - Unspecified abdominal pain Status: Acute Assessment and Plan A/P: 1. Chest Pain: Atypical, likely referred pain from RUQ. Initial trop negative , admit for Observation, telemetry, check serial cardiac enzymes. ALLERGY to ASA. Check Lipid Profile, Hgb A1c. Morphine prn. 2. Abdominal Pain: RUQ pain, associated w/ nausea/vomiting. CT Abd/Pelvis w/ contracted gallbladder, images reviewed by me. Will check Gallbladder US for possible stone/ductal dilatation. Analgesics/antiemetics as needed. On Truvada for prophylaxis, LFTs normal. 3. DVT Prophylaxis: SCD/Teds. 4. Social work for d/c planning as needed 5. Case discussed w/ ER physician at length, labs/records/imaging reviewed by me. Problem Qualifiers (1) Abdominal pain: Qualified Codes: R10.12 - Left upper quadrant pain Maureen Alfred MD Jul 05, 2017 20:52
[2017-07-05] MEDS ORDERED: QUETIAPINE 150 MG PO SCH (21:00)
[2017-07-05] MEDS ORDERED: MORPHINE SULFATE 2 MG/ML INJ IV PUSH ONE (21:00)
[2017-07-05] MEDS: risperiDONE 1 MG TAB PO SCH (21:00)
[2017-07-05] MEDS: QUEtiapine FUMARATE 25 MG TAB PO SCH ×2 (21:30→23:30)
[2017-07-05 23:09] VITALS: BP 163/98; PULSE 93; RESP 18; TEMP 98; O2SAT 100
[2017-07-05] MEDS: DOCUSATE SODIUM 50 MG/SENNA 8.6 MG TAB PO SCH (23:30)
[2017-07-05] MEDS: ATORVASTATIN 40 MG TAB PO SCH (23:31)
[2017-07-05] MEDS: FAMOTIDINE 20 MG/2 ML VIAL IV PUSH SCH (23:31)
[2017-07-05] MEDS: SODIUM CHLORIDE 0.9% FLUSH 10 ML FLUSH IV FLUSH SCH (23:32)
[2017-07-05] MEDS: SODIUM CHLOR 0.9% 1000 ML INJ 1,000 ML IV SCH (23:35)
[2017-07-06] VITALS (7 sets, daily range): BP systolic 107–133; BP diastolic 53–80; PULSE 77–95; RESP 16–18; TEMP 97.3–98.2; O2SAT 75–99
[2017-07-06] MEDS: LITHIUM CARBONATE 300 MG CAP PO SCH ×3 (00:02→22:47)
[2017-07-06 06:21] LABS: ALBUMIN 3.2 GM/DL (3.4-5.0); AST (GOT) 27 U/L (15-37); BICARBONATE 25.7 MEQ/L (21.0-32.0); BLOOD UREA NITROGEN 11 MG/DL (7-18); CALCIUM 8.4 MG/DL (8.5-10.1); CHLORIDE 107 MEQ/L (98-107); CHOLESTEROL 275 MG/DL (120-200); CREATININE 1.27 MG/DL (0.60-1.30); GLOMERULAR FILTRATION RATE 77 ML/MIN (>89); GLUCOSE,RANDOM 96 MG/DL (74-106); SODIUM (NA) 141 MEQ/L (136-145); TRIGLYCERIDES 366 MG/DL (42-150)
[2017-07-06 06:26] LABS: ALKALINE PHOSPHATASE 44 U/L (45-117); ALT (GPT) 38 U/L (12-78); TOTAL BILIRUBIN ADULT 0.3 MG/DL (0.2-1.0); TOTAL PROTEIN 6.7 GM/DL (6.4-8.2); TROPONIN I LESS THAN 0.02 NG/ML (0.02-0.05)
[2017-07-06 06:29] LABS: HDL CHOLESTEROL 34.8 MG/DL (40.0-60.0); LDL CHOLESTEROL 167 MG/DL (0-99)
[2017-07-06 08:47] LABS: BASOPHIL # 0.1 TH/MM3 (0-0.2); EOSINOPHIL # 0.2 TH/MM3 (0-0.4); EOSINOPHIL % 3.2 % (0.0-4.0); HEMATOCRIT 43.4 % (39.0-51.0); LYMPH % 45.7 % (9.0-44.0); LYMPHOCYTE # 2.3 TH/MM3 (1.0-4.8); MEAN CELL VOLUME 94.8 FL (80.0-100.0); MEAN CORPUSCULAR HEMOGLOBIN 32.6 PG (27.0-34.0); MEAN CORPUSCULAR HGB CONC 34.4 % (32.0-36.0); MONO % 10.4 % (0.0-8.0); MONOCYTE # 0.5 TH/MM3 (0-0.9); NEUT % 39.7 % (16.0-70.0); PLATELET COUNT 332 TH/MM3 (150-450); RED BLOOD COUNT 4.58 MIL/MM3 (4.50-5.90); RED CELL DISTRIBUTION WIDTH 12.7 % (11.6-17.2); WHITE BLOOD COUNT 5.1 TH/MM3 (4.0-11.0)
[2017-07-06] MEDS ORDERED: amLODIPine BESYLATE 5 MG TAB PO SCH (09:00)
[2017-07-06] MEDS ORDERED: HYDROCHLOROTHIAZIDE 12.5 MG CAP PO SCH (09:00)
--- NOTE | 2017-07-06 09:10 | RADRPT ---
EXAM DATE/TIME: 07/06/2017 08:08 [facility] COMPARISON: CT ABDOMEN & PELVIS W CONTRAST, July 05, 2017, 19:53. INDICATIONS : Right upper quadrant pain. MEDICAL HISTORY : Hypercholesterolemia. Hypertension. Dizziness. Chest pain. Arthritis. Diabetes. Depression. SURGICAL HISTORY : Appendectomy. Eye surgery. Left arm surgery. ENCOUNTER: Initial ACUITY: 2 days PAIN SCORE: 7/10 LOCATION: Right upper quadrant MEASUREMENTS: LIVER: 15.5 cm length COMMON DUCT: 7 mm RIGHT KIDNEY: 10.6 x 3.2 x 4.9 cm FINDINGS: LIVER: Mild hepatomegaly is noted. Normal echotexture without focal lesion or ductal dilatation. COMMON DUCT: No intraluminal mass or stone visualized. GALLBLADDER: Contains no stones, demonstrates no wall thickening or pericholecystic fluid. PANCREAS: The pancreas is difficult to visualize due to shadowing bowel gas. RIGHT KIDNEY: No evidence of hydronephrosis, stone, or mass. CONCLUSION: 1. Mild hepatomegaly. 2. Poor visualization of pancreas due to shadowing bowel gas. 3. Unremarkable gallbladder. Micah Willett MD on July 06, 2017 at 9:04 Board Certified Radiologist. This report was verified electronically.
[2017-07-06] MEDS: FAMOTIDINE 20 MG/2 ML VIAL IV PUSH SCH ×2 (09:19→21:00)
[2017-07-06] MEDS: DOCUSATE SODIUM 50 MG/SENNA 8.6 MG TAB PO SCH ×2 (09:21→22:48)
[2017-07-06] MEDS: EMTRICITABINE/TENOFOVIR 200 MG/300 MG TAB PO SCH (09:22)
[2017-07-06] MEDS: QUEtiapine FUMARATE 25 MG TAB PO SCH ×2 (09:22→22:47)
[2017-07-06] MEDS: SODIUM CHLOR 0.9% 1000 ML INJ 1,000 ML IV SCH ×2 (09:22→18:31)
[2017-07-06] MEDS: SODIUM CHLORIDE 0.9% FLUSH 10 ML FLUSH IV FLUSH SCH ×2 (09:22→21:00)
[2017-07-06] MEDS: busPIRone HCL 10 MG TAB PO SCH ×3 (09:22→18:31)
[2017-07-06] MEDS ORDERED: EMTR1TAB4 PO (09:33)
[2017-07-06 11:44] LABS: HEMOGLOBIN A1C 5.7 % (4.3-6.0)
--- NOTE | 2017-07-06 15:42 | HHI.PR ---
Subjective Remarks Pt complains of constant pressure in the RUQ and fullness. Pt state that at this time, pain is much improved, received pain meds. States that his pain comes and goes, located in the RUQ and epigastric region w radiation to his should and lower back. notices some abdominal distension. At time pains goes up to a 10/10 and he has to put a pillow between his legs to get some comfort. States he had some tramadol for his "teeth work" and has been taking it w some relief. Has been feeling nauseous but hasn't vomitted today. no BM but passing flatus Objective Vitals Vital Signs Date Time Temp Pulse Resp B/P (MAP) Pulse Ox O2 Delivery O2 Flow Rate FiO2 07/06/17 11:51 97.8 79 18 122/70 (87) 98 07/06/17 09:37 97.3 87 16 112/67 (82) 96 07/06/17 04:09 98.2 95 18 107/53 (71) 75 07/06/17 00:30 81 07/06/17 00:14 07/05/17 23:09 98.0 93 18 163/98 (119) 100 07/05/17 19:17 90 18 147/91 (109) 100 Room Air 07/05/17 16:28 86 13 146/81 (102) 99 Room Air 07/05/17 15:37 98.9 91 17 154/93 (113) 99 I/O 07/05/17 07/05/17 07/05/17 07/06/17 07/06/17 07/06/17 07:00 15:00 23:00 07:00 15:00 23:00 Intake Total 1000 ml Output Total 550 ml Balance 1000 ml -550 ml Intake IV Total 1000 ml Output Urine Total 550 ml Result Diagram: 07/06/17 04307/06/17 043 Objective Remarks GENERAL: Pleasant young black male, laying in bed a bit somnolent (got some pain meds) HEENT: EOMI. CARDIOVASCULAR: Regular rate and rhythm. No obvious murmurs to auscultation. No chest tenderness to palpation. RESPIRATORY: No obvious wheezing. Clear to auscultation. Breath sounds equal bilaterally. does have a dry cough at times has some phlegm GASTROINTESTINAL: Abdomen soft, tenderness to palpation RUQ, appears a bit distended but some voluntary guarding when palpating the RUQ. No CVA tenderness. BS normal. MUSCULOSKELETAL: Extremities without edema. No obvious deformities. NEUROLOGICAL: Awake, alert and oriented. Moving both upper and lower extremities spontaneously. A/P Problem List: (1) Chest pain ICD Code: R07.9 - Chest pain, unspecified (2) Abdominal pain ICD Code: R10.9 - Unspecified abdominal pain Status: Acute Assessment and Plan 1. Chest Pain: Atypical, likely referred pain from RUQ. serial CE neg x 3. ALLERGY to ASA. Lipid Profile shows Tg 366, LDL 167, HDL 34.8. Place him on low fat diet. , Hgb A1c 5.3. Morphine prn. 2. Abdominal Pain: RUQ pain, associated w/ nausea/vomiting. CT Abd/Pelvis w/ contracted gallbladder. Gallbladder US shows unremarkable gallbladder. Pt still symptomatic. Will order HIDA scan. Consult GI. LFTs and lipase wnl. Analgesics/antiemetics as needed. On Truvada for HIV prophylaxis 3. DVT Prophylaxis: SCD/Teds. Discharge Planning f/u on HIDA scan. GI consult in place. appreciate recs Problem Qualifiers (1) Abdominal pain: Qualified Codes: R10.12 - Left upper quadrant pain Zuly Jacques MD Jul 06, 2017 15:42
--- NOTE | 2017-07-06 19:56 | EKG ---
Date Performed: 07/06/2017 Time Performed: 04:21:45 PTAGE: 37 years EKG: Sinus rhythm MODERATE T-WAVE ABNORMALITY, CONSIDER INFERIOR ISCHEMIA Since the previous tracing, no significant c hange noted ABNORMAL ECG PREVIOUS TRACING : 07/05/2017 15.47 DOCTOR: Danette Larios Interpretating Date/Time 07/06/2017 19:52:30
[2017-07-06] MEDS: risperiDONE 1 MG TAB PO SCH (22:47)
[2017-07-06] MEDS: ATORVASTATIN 40 MG TAB PO SCH (22:48)
[2017-07-07] VITALS (7 sets, daily range): BP systolic 107–147; BP diastolic 54–92; PULSE 72–90; RESP 16–18; TEMP 97.6–98.5; O2SAT 95–99
[2017-07-07 05:34] LABS: ALKALINE PHOSPHATASE 57 U/L (45-117); ALT (GPT) 36 U/L (12-78); TOTAL BILIRUBIN ADULT 0.2 MG/DL (0.2-1.0); TOTAL PROTEIN 6.2 GM/DL (6.4-8.2)
[2017-07-07 05:40] LABS: ALBUMIN 2.9 GM/DL (3.4-5.0); AST (GOT) 27 U/L (15-37); BICARBONATE 24.2 MEQ/L (21.0-32.0); BLOOD UREA NITROGEN 14 MG/DL (7-18); CALCIUM 8.4 MG/DL (8.5-10.1); CHLORIDE 107 MEQ/L (98-107); CREATININE 1.37 MG/DL (0.60-1.30); GLOMERULAR FILTRATION RATE 70 ML/MIN (>89); GLUCOSE,RANDOM 118 MG/DL (74-106); SODIUM (NA) 140 MEQ/L (136-145)
[2017-07-07] MEDS: SODIUM CHLOR 0.9% 1000 ML INJ 1,000 ML IV SCH ×4 (06:01→21:59)
[2017-07-07] MEDS: busPIRone HCL 10 MG TAB PO SCH ×3 (09:00→17:25)
[2017-07-07] MEDS ORDERED: SODIUM CHLOR 0.9% 1000 ML INJ 1,000 ML IV ONE (10:00)
--- NOTE | 2017-07-07 10:40 | RADRPT ---
EXAM DATE/TIME: 07/07/2017 08:32 [facility] COMPARISON: No previous studies available for comparison. INDICATIONS : Abdominal pain with nausea. DOSE: 4.4 mCi Tc99m Mebrofenin IV MEDICATION: 1.6 mcg Cholecystokinin IV; Indential symptomatic response. Cholecystokinin was administered by slow infusion over 8 minutes beginning at 60 minutes. MEDICAL HISTORY : Hypertension. SURGICAL HISTORY : Appendectomy. ENCOUNTER: Initial ACUITY: 1 day PAIN SCALE: 6/10 LOCATION: Right upper quadrant TECHNIQUE: Following the intravenous administration of radiotracer, dynamic sequential image were performed with continuous acquisition. Time-activity curves were generated. FINDINGS: HEPATIC KINETICS: There is prompt uptake of radiotracer in the liver. No focal defects are seen. There is normal rate of washout from the hepatic parenchyma. BILIARY CLEARANCE: Activity is first seen in the extrahepatic biliary system at 5-10 minutes. There is normal excretion into the small bowel. GALLBLADDER: Activity is first seen in the gallbladder at 5-10 minutes. POST CHOLECYSTOKININ: After Cholecystokinin administration, there is prompt emptying of the gallbladder with a 80-90 % ejec tion fraction. Common bile duct kinetics are normal and there is no evidence of biliary obstruction. BILIARY ENTERIC REFLUX: None observed. CLINICAL: The patient did experience nausea and abdominal cramping with CCK administration CONCLUSION: Symptomatology with CCK potentially indicative of biliary dyskinesia. Normal hepatobiliary kinetics Pelon Hernandez MD on July 07, 2017 at 10:35 Board Certified Radiologist. This report was verified electronically.
[2017-07-07] MEDS ORDERED: METOPROLOL TARTRATE 5 MG/5 ML VIAL IV PUSH PRN (11:00)
[2017-07-07] MEDS ORDERED: NITROGLYCERIN 0.4 MG SL 25 TABS/BTL SL SCH (11:00)
[2017-07-07] MEDS ORDERED: METOPROLOL TARTRATE 50 MG TAB PO SCH (11:00)
[2017-07-07] MEDS: LITHIUM CARBONATE 300 MG CAP PO SCH ×2 (11:23→23:35)
[2017-07-07] MEDS: DOCUSATE SODIUM 50 MG/SENNA 8.6 MG TAB PO SCH ×2 (11:23→23:34)
[2017-07-07] MEDS: EMTRICITABINE/TENOFOVIR 200 MG/300 MG TAB PO SCH (11:23)
[2017-07-07] MEDS: FAMOTIDINE 20 MG/2 ML VIAL IV PUSH SCH (11:26)
[2017-07-07] MEDS: SODIUM CHLORIDE 0.9% FLUSH 10 ML FLUSH IV FLUSH SCH ×2 (11:26→21:00)
--- NOTE | 2017-07-07 11:29 | MB ---
cc: Efrain Elizondo MD DATE: 07/07/2017 INDICATION: Abnormal electrocardiogram. HISTORY OF PRESENT ILLNESS: This is a 37-year-old gentleman who presents to the emergency department with complaints of lightheadedness, visual changes, occasional palpitations, in addition to vague chest pain. The patient states that he has had a little bit of a productive cough. He also states he has had some palpitations at night with racing heart. He also had some right upper quadrant pain. When he came into the emergency department, he complained of right upper quadrant pain. Electrocardiogram performed showed new T-wave inversions anterolaterally. The patient is currently chest pain free. We are consulted for further recommendations. PAST MEDICAL HISTORY: Arthritis, depression, hypertension, hyperlipidemia and borderline diabetes. MEDICATIONS: risperidone, lithium, buspirone, Seroquel, hydrochlorothiazide, atorvastatin, amlodipine. ALLERGIES: ASPIRIN CAUSES THROAT SWELLING. SOCIAL HISTORY: Uses tobacco . Substance abuse: Does report occasional cocaine use, no alcohol use. REVIEW OF SYSTEMS: A 12-point review of systems was performed, negative unless otherwise noted in history of present illness. PHYSICAL EXAMINATION: Temp is 98. Pulse is 84, blood pressure 122/81 mmHg. GENERAL: Alert and oriented x 3, in no acute distress. HEENT: Shows pupils reactive to light and accommodation. Extraocular muscles intact. NECK: No elevation of jugular venous distention. No thyromegaly. No lymphadenopathy. No carotid bruits. LUNGS: Clear to auscultation bilaterally. CARDIOVASCULAR: Regular rate and rhythm without murmurs, rubs or gallops. ABDOMEN: Nontender, nondistended with good bowel sounds. No hepatosplenomegaly. EXTREMITIES: Show no clubbing, cyanosis or edema. Good peripheral pulses. CRANIAL NERVES: Intact. Motor and sensory grossly intact. LABORATORY DATA: WBC 5.1. Hemoglobin is 15. Platelet count is 332. INR is 1. Sodium 140, potassium 3.8. BUN is 14. Creatinine is 1.37. LDL is 167. Electrocardiogram shows sinus rhythm, T-wave inversions anterolaterally. ASSESSMENT: 1. Atypical chest pain. 2. Palpitations. 3. Hypertension. PLAN: Patient's symptoms sound rather atypical. He does have a history of drug use but does not report any recent use. Blood pressure looks okay here today, slightly elevated. Probably would benefit better more from an angiotensin converting enzyme inhibitor rather than diuretic and amlodipine combination. He does apparently have borderline diabetes, which would also help with proteinuria. He just had a HIDA scan, so a nuclear would take 48 hours. Given his T-wave inversions, exercise treadmill alone probably will not be helpful. We will proceed with CT of the coronaries, rule out any anomalous coronaries or obstructive coronary disease. We will slow his heart rate down appropriately for the study. If that comes back unremarkable, probably initiate him on an OSCAR inhibitor on discharge. We will get a 2-D echocardiogram. I suspect his EKG changes are likely due to LVH. If both are negative, he can be discharged with outpatient followup with the primary care doctor. MD JOAQUINA Dalal/PADMINI , 10:57 AM , 11:28 AM
[2017-07-07] MEDS ORDERED: FAMOTIDINE 20 MG/2 ML VIAL IV PUSH SCH ×2 (12:45)
--- NOTE | 2017-07-07 13:00 | HHI.PR ---
Subjective Remarks Patient says he is feeling all right today. Reports chest pain has resolved. Still reports some dull abdominal pain. Denies any nausea or vomiting. Objective Vital Signs Date Time Temp Pulse Resp B/P (MAP) Pulse Ox O2 Delivery O2 Flow Rate FiO2 07/07/17 08:10 98.5 84 16 122/81 (95) 97 07/07/17 01:16 98.5 85 18 107/54 (71) 95 07/06/17 20:51 98.2 90 18 129/66 (87) 98 07/06/17 16:55 98.2 84 18 133/80 (97) 96 07/06/17 15:00 97.9 77 18 115/79 (91) 99 I/O 07/06/17 07/06/17 07/06/17 07/07/17 07/07/17 07/07/17 07:00 15:00 23:00 07:00 15:00 23:00 Intake Total 1000 ml Output Total 550 ml Balance -550 ml 1000 ml Intake IV Total 1000 ml Output Urine Total 550 ml Result Diagram: 07/06/17 0432 07/07/17 0435 Objective Remarks GENERAL: Patient sitting up in bed. Appears comfortable. Alert and oriented 3. SKIN: Warm and dry. HEAD: Normocephalic. EYES: No scleral icterus. No injection or drainage. NECK: Supple, trachea midline. No JVD. CARDIOVASCULAR: Regular rate and rhythm without murmurs, gallops, or rubs. RESPIRATORY: Breath sounds equal bilaterally. No accessory muscle use. GASTROINTESTINAL: Abdomen soft, non-tender, nondistended. MUSCULOSKELETAL: No cyanosis, or edema. BACK: Nontender without obvious deformity. No CVA tenderness. A/P Assessment and Plan //Chest Pain: Atypical, likely referred pain from RUQ. serial CE neg x 3. ALLERGY to ASA. Lipid Profile shows Tg 366, LDL 167, HDL 34.8. Place him on low fat diet. , Hgb A1c 5.3. Morphine prn. = Due to inverted T waves which are new, cardiology consulted. Recommend CT coronary angiogram which has been ordered. Follow-up CT coronary angiogram //Acute kidney injury. Creatinine 1.4 from 1.0 on admission. IV fluids were off. And patient had been n.p.o. for procedures. Will increase IV fluids. Continue to monitor //Abdominal Pain: RUQ pain, associated w/ nausea/vomiting. CT Abd/Pelvis w/ contracted gallbladder. Gallbladder US shows unremarkable gallbladder. Pt still symptomatic. Will order HIDA scan. Consult GI. LFTs and lipase wnl. Analgesics/antiemetics as needed. On Truvada for HIV prophylaxis. //DVT Prophylaxis: SCD/Teds. Discharge Planning Possibly discharge home after CT coronary angiogram Preet Madden MD Jul 07, 2017 13:00
--- NOTE | 2017-07-07 13:01 | PD.CONS ---
HPI History of Present Illness This is a 37 year old M with PMH significant for anxiety, depression, bipolar disorder, HTN, and hyperlipidemia. Pt presented to [place] [facility] on Friday with multiple complaints. The main complaint that finally made him decide to come in was complaints of feeling off balance with headache and dizzy with associated chest pain and palpitations. Pt also complaining of very vague abdominal pain. When asked to localize the pain he points to three separate areas of his stomach, his RLQ, above his umbilicus, and his RUQ. States the pains all seem to occur simultaneously and feel like a pinching sensation. Aggravating factors are drinking excessive water and sitting up. Pain is relieved when he lies on his side in the position. States pain has been intermittent for the past month. Intermittent occasional nausea and vomiting, denies hematemesis and coffee ground emesis. Denies relation to food. States normally has regular BMs sometimes three a day but denies diarrhea. Had one episode of hard stool yesterday. Occasionally notices BRB on the toilet paper after wiping, has been prescribed a hemorrhoid cream. Denies any recent weight loss. Of note, has been taking Goodys Powder and Ibuprofen OTC for pain. Denies ever having EGD or colonoscopy. History of ruptured appendectomy requiring what sounds like a BHAVNA drain in the past. (Gavi Medina) PFSH Past Medical History PMH: Anxiety, Depression, Bipolar Disorder, HTN and Hyperlipidemia Past Surgical History PAST SURGICAL HISTORY: Appendectomy, Ear Surgery (Gavi Medina) Coded Allergies: aspirin (Unverified Allergy, Severe, 07/05/17) SHORTNESS OF BREATH/"THROAT SWELLING" Family History PAST FAMILY HISTORY: Reviewed. No h/o DM or CAD Social History PAST SOCIAL HISTORY: Negative for alcohol. Positive for tobacco, dip. Negative for drugs. (Gavi Medina) Review of Systems Gastrointestinal: COMPLAINS OF: Abdominal pain, Nausea, Vomiting, DENIES: Black stools, Bloody stools, Constipation, Diarrhea, Difficulty Swallowing, Odynophagia, Swelling of Abdomen, Heartburn, Hematemesis (Gavi Medina) GI Exam Vitals I&O Vital Signs Date Time Temp Pulse Resp B/P (MAP) Pulse Ox O2 Delivery O2 Flow Rate FiO2 3/26/18 08:10 98.5 84 16 122/81 (95) 97 07/07/17 01:16 98.5 85 18 107/54 (71) 95 07/06/17 20:51 98.2 90 18 129/66 (87) 98 07/06/17 16:55 98.2 84 18 133/80 (97) 96 07/06/17 15:00 97.9 77 18 115/79 (91) 99 I/O 07/06/17 07/06/17 07/06/17 07/07/17 07/07/17 07/07/17 07:00 15:00 23:00 07:00 15:00 23:00 Intake Total 1000 ml Output Total 550 ml Balance -550 ml 1000 ml Intake IV Total 1000 ml Output Urine Total 550 ml Imaging Last Impressions Gall Bladder Ultrasound 07/06/17 0000 Signed Impressions: Service Date/Time: Thursday, July 06, 2017 08:08 - CONCLUSION: 1. Mild hepatomegaly. 2. Poor visualization of pancreas due to shadowing bowel gas. 3. Unremarkable gallbladder. Micah Willett MD Chest X-Ray 07/05/17 1540 Signed Impressions: Service Date/Time: Wednesday, July 05, 2017 15:57 - CONCLUSION: No acute disease. Rufus Garland MD FACR Abdomen/Pelvis CT 07/05/17 0000 Signed Impressions: Service Date/Time: Wednesday, July 05, 2017 19:53 - CONCLUSION: Small contracted gallbladder otherwise negative Rufus Garland MD FACR Laboratory Test 07/07/17 04:35 Blood Urea Nitrogen 14 MG/DL Creatinine 1.37 MG/DL Random Glucose 118 MG/DL Total Protein 6.2 GM/DL Albumin 2.9 GM/DL Calcium Level 8.4 MG/DL Alkaline Phosphatase 57 U/L Aspartate Amino Transf (AST/SGOT) 27 U/L Alanine Aminotransferase (ALT/SGPT) 36 U/L Total Bilirubin 0.2 MG/DL Sodium Level 140 MEQ/L Potassium Level 3.8 MEQ/L Chloride Level 107 MEQ/L Carbon Dioxide Level 24.2 MEQ/L Anion Gap 9 MEQ/L Estimat Glomerular Filtration Rate 70 ML/MIN Physical Examination HEENT: Normocephalic; atraumatic CHEST: Even/unlabored CARDIAC: RRR ABDOMEN: Soft, nondistended, nontender; bowel sounds active EXTREMITIES: No clubbing, cyanosis, or edema. SKIN: Normal; no rash; no jaundice. OPTICAL MECHANIC: No focal deficits; alert and oriented times three. (Gavi Medina) Assessment and Plan Plan Assessment: - Abdominal pain- When asked to localize pain points to RLQ abdomen, above umbilicus, and RUQ. States pain occurs at the same time. Aggravating factors are drinking a lot of water and sitting up. Pain is better when he lays on his side in the position. Also states when he presses in his RLQ feels the sensation like he has to urinate. Work up so far: HIDA scan --> Symptomatology with CCK potentially indicative of biliary dyskinesia. Normal hepatobiliary kinetics Gallbladder US --> Mild hepatomegaly. Poor visualization of pancreas due to shadowing bowel gas. Unremarkable gallbladder. CT abdomen and pelvis --> Small contracted gallbladder otherwise negative - Nausea and vomiting- intermittent over the past month, no relation to food. Denies hematemesis and coffee ground emesis. Reports taking Ibuprofen and Goody Powder daily for generalized pain. Denies ever having EGD or colonoscopy Abdominal pain and vomiting is not a new symptoms, pt states the reason he decided to come in the ER was due to chest palpitations, feeling like he was going to pass out, and chest pain. Cardiology work up seems to be priority at this time. Would likely benefit from an EGD given hx of N/V, frequent NSAIDs however, this can be done after cardiac work up. Regarding RLQ pain, nonspecific, positional, possibly related to adhesions after previous appendectomy? - Chest pain, palpitations- with changes in EKG since 2014- cardiology planning on 2-D echo and nuclear stress test (cant be done until 48 hours after HIDA) they suspect LVH Plan: OMER Protonix Carafate Cardiology work up EGD pending cardiology work up ? antispasmodic if no improvement with above Will continue to follow Further recommendations based on clinical course Pt has been seen and examined by myself and Dr. Okeefe and this note is written on hsi behalf (Gavi Medina) Physician Comments Patient seen and examined Agree with above Continue with current supportive care Monitor lab If the cardiac workup is negative then patient will need EGD (Peng Okeefe MD) Gavi Medina Jul 07, 2017 13:01 Peng Okeefe MD Jul 07, 2017 23:55
[2017-07-07] MEDS: SUCRALFATE 1 GM/10 ML CUP PO SCH ×2 (17:25→23:34)
[2017-07-07] MEDS ORDERED: NITROGLYCERIN 0.4 MG SL 25 TABS/BTL SL ONE (17:52)
[2017-07-07] MEDS ORDERED: SINCALIDE 5 MCG/5 ML VIAL IV ONE (20:52)
--- NOTE | 2017-07-07 23:07 | RADRPT ---
EXAM DATE/TIME: 07/07/2017 17:59 [facility] COMPARISON: No previous studies available for comparison. INDICATIONS : Patient complains of chest pain. IV CONTRAST: 90 cc Omnipaque 350 (iohexol) IV RADIATION DOSE: 4.13 CTDIvol (mGy) MEDICAL HISTORY : Hypertension. Diabetes mellitus type 1. SURGICAL HISTORY : Appendectomy. ENCOUNTER: Initial ACUITY: 1 day PAIN SCALE: 5/10 LOCATION: chest TECHNIQUE: Volumetric scanning was obtained through the heart. Images were acquired on a multislice multiple ro w detector helical scanner timed for acquisition during peak arterial contrast. Images were reconstr ucted using a retrospective gating algorithm including single sector and multi-sector algorithms at m ultiple phases of the cardiac cycle. Images were interpreted using a combination of 2D and 3D visual ization modes including curved planar reformation, thin slab maximum intensity projection and volume rendering. Using automated exposure control and adjustment of the mA and/or kV according to patient size, radiation dose was kept as low as reasonably achievable to obtain optimal diagnostic quality im ages. DICOM format image data is available electronically for review and comparison. FINDINGS: VESSEL ANALYSIS: DOMINANCE: The coronary system is left dominant. LEFT MAIN: Normal vessel without calcification or stenosis. LAD: Normal vessel without calcification or stenosis. Ramus intermedius branch also seen, which is patent. Diagonal branches are patent. LAD wraps around the apex and patent. CIRCUMFLEX: Normal vessel without calcification or stenosis. Obtuse marginal branches are patent. Posterior later al and posterior descending artery patent. RCA: Small size vessel without calcification or stenosis. OTHER: None. CONCLUSION: Normal coronary arteries. Compa Peterson MD on July 07, 2017 at 23:03 Board Certified Radiologist. This report was verified electronically.
[2017-07-07] MEDS: ATORVASTATIN 40 MG TAB PO SCH (23:35)
[2017-07-07] MEDS: QUEtiapine FUMARATE 25 MG TAB PO SCH (23:35)
[2017-07-07] MEDS: risperiDONE 1 MG TAB PO SCH (23:35)
[2017-07-07] MEDS: FAMOTIDINE 20 MG TAB PO SCH (23:35)
[2017-07-08] MEDS: SODIUM CHLOR 0.9% 1000 ML INJ 1,000 ML IV SCH ×2 (02:59→07:59)
[2017-07-08 04:10] VITALS: BP 97/52; PULSE 75; RESP 16; TEMP 98.5; O2SAT 100
[2017-07-08 06:57] VITALS: BP 123/76; PULSE 75; RESP 16; TEMP 98.5; O2SAT 95
--- NOTE | 2017-07-08 08:08 | PD.CARD.PN ---
Subjective Subjective Remarks Patient reports chest pain was relieved with morphine and nitroglycerin for his CTA yesterday, no further episodes. Denies any shortness of breath. He reports he had an episode of heart racing overnight. Telemetry showed a single episode of sinus tachycardia rate 126. Objective Medications Current Medications Medications (Trade) Dose Ordered Sig/Link Route Start Time Stop Time Status Last Admin Sodium Chloride 1,000 ml @ 200 mls/hr Q5H IV 07/05/17 21:00 07/07/17 21:59 (NS Flush) 2 ml UNSCH PRN IV FLUSH 07/05/17 20:45 (NS Flush) 2 ml BID IV FLUSH 07/05/17 21:00 07/07/17 11:26 (Zofran Inj) 4 mg Q6H PRN IVP 07/05/17 20:45 (Tylenol) 650 mg Q6H PRN PO 07/05/17 20:45 ([place] 5-325 Mg) 1 tab Q4H PRN PO 07/05/17 20:45 07/07/17 23:34 (Morphine Inj) 2 mg Q3H PRN IV PUSH 07/05/17 20:45 (Dawna-Colace) 1 tab BID PO 07/05/17 21:00 07/07/17 23:34 (Milk Of Magnesia Liq) 30 ml Q12H PRN PO 07/05/17 20:45 (Senokot) 17.2 mg Q12H PRN PO 07/05/17 20:45 (Dulcolax Supp) 10 mg DAILY PRN RECTAL 07/05/17 20:45 (Lactulose Liq) 30 ml DAILY PRN PO 07/05/17 20:45 (Lipitor) 40 mg HS PO 07/05/17 21:00 07/07/17 23:35 (Buspar) 10 mg TID PO 07/06/17 09:00 07/07/17 17:25 (Truvada 200-300 Mg) 1 tab DAILY PO 07/06/17 09:00 07/07/17 11:23 (Valeria Carbonate) 300 mg BID PO 07/05/17 21:00 07/07/17 23:35 (risperDAL) 1 mg HS PO 07/05/17 21:00 07/07/17 23:35 (SEROquel) 50 mg HS PO 07/06/17 21:15 07/07/17 23:35 (Lopressor) 50 mg ICING MAKER PO 07/07/17 11:00 07/11/17 10:59 07/07/17 14:00 (Lopressor Inj) 5 mg ICING MAKER PRN IV PUSH 07/07/17 11:00 07/11/17 10:59 (Nitrostat Sl) 0.4 mg ONCE SL 07/07/17 11:00 07/11/17 10:59 (Pepcid) 20 mg BID PO 07/07/17 21:00 07/07/17 23:35 (Carafate Liq) 1 gm ACHS PO 07/07/17 17:00 07/07/17 23:34 (Protonix) 40 mg DAILY PO 07/08/17 09:00 Vital Signs / I&O Vital Signs Date Time Temp Pulse Resp B/P (MAP) Pulse Ox O2 Delivery O2 Flow Rate FiO2 07/08/17 06:57 98.5 75 16 123/76 (92) 95 07/08/17 04:10 98.5 75 16 97/52 (67) 100 07/08/17 00:41 18 07/07/17 22:42 98.4 81 16 110/62 (78) 99 07/07/17 15:56 97.6 77 16 147/92 (110) 99 07/07/17 12:47 98.0 90 16 139/87 (104) 98 07/07/17 11:33 82 07/07/17 08:10 98.5 84 16 122/81 (95) 97 I/O 07/07/17 07/07/17 07/07/17 07/08/17 07/08/17 07/08/17 07:00 15:00 23:00 07:00 15:00 23:00 Intake Total 1000 ml 200 ml Balance 1000 ml 200 ml Intake Oral 200 ml IV Total 1000 ml Physical Exam GENERAL: Well-developed well-nourished. In no acute distress. NECK: No carotid bruits. No JVD. CARDIOVASCULAR: Regular rate and rhythm. No murmur appreciated. RESPIRATORY: No accessory muscle use. Clear to auscultation. Breath sounds equal bilaterally. MUSCULOSKELETAL: No clubbing or cyanosis. No edema. NEUROLOGICAL: Awake and alert. Normal speech. Imaging Last Impressions Hepatobiliary Scan Nuclear Medicine 07/07/17 0000 Signed Impressions: Service Date/Time: Friday, July 07, 2017 08:32 - CONCLUSION: Symptomatology with CCK potentially indicative of biliary dyskinesia. Normal hepatobiliary kinetics Pelon Hernandez MD Gall Bladder Ultrasound 07/06/17 0000 Signed Impressions: Service Date/Time: Thursday, July 06, 2017 08:08 - CONCLUSION: 1. Mild hepatomegaly. 2. Poor visualization of pancreas due to shadowing bowel gas. 3. Unremarkable gallbladder. Micah Willett MD Chest X-Ray 07/05/17 1540 Signed Impressions: Service Date/Time: Wednesday, July 05, 2017 15:57 - CONCLUSION: No acute disease. Rufus Garland MD FACR Abdomen/Pelvis CT 07/05/17 0000 Signed Impressions: Service Date/Time: Wednesday, July 05, 2017 19:53 - CONCLUSION: Small contracted gallbladder otherwise negative Rufus Garland MD FACR Assessment and Plan Assessment and Plan Atypical chest pain: CTA of the coronaries were normal. Echocardiogram pending , if unremarkable, patient can be discharged from a cardiology standpoint for outpatient follow-up with PCP. Palpitations: Patient felt improvement with his symptoms with metoprolol, will start 12.5 mg twice daily. Marcello Ford Jul 08, 2017 08:08
[2017-07-08] MEDS ORDERED: PILL SPLITTER OTHER PRN (08:30)
[2017-07-08] MEDS ORDERED: PANTOPRAZOLE SOD 40 MG DELAYED RELEASE TAB PO SCH (09:00)
[2017-07-08] MEDS ORDERED: METOPROLOL TARTRATE 25 MG TAB PO SCH (09:00)
[2017-07-08] MEDS: EMTRICITABINE/TENOFOVIR 200 MG/300 MG TAB PO SCH (09:07)
[2017-07-08] MEDS: FAMOTIDINE 20 MG TAB PO SCH (09:07)
[2017-07-08] MEDS: DOCUSATE SODIUM 50 MG/SENNA 8.6 MG TAB PO SCH (09:07)
[2017-07-08] MEDS: LITHIUM CARBONATE 300 MG CAP PO SCH (09:08)
[2017-07-08] MEDS: busPIRone HCL 10 MG TAB PO SCH (09:08)
[2017-07-08] MEDS: SODIUM CHLORIDE 0.9% FLUSH 10 ML FLUSH IV FLUSH SCH (09:08)
[2017-07-08] MEDS: SUCRALFATE 1 GM/10 ML CUP PO SCH ×2 (09:08→12:00)
--- NOTE | 2017-07-08 12:29 | HHI.PR ---
Subjective Remarks Says he is feeling better today. Denies any chest pain or shortness of breath. Denies any nausea or vomiting. Denies any abdominal pain. Objective Vital Signs Date Time Temp Pulse Resp B/P (MAP) Pulse Ox O2 Delivery O2 Flow Rate FiO2 07/08/17 06:57 98.5 75 16 123/76 (92) 95 07/08/17 04:10 98.5 75 16 97/52 (67) 100 07/08/17 00:41 18 07/07/17 22:42 98.4 81 16 110/62 (78) 99 07/07/17 15:56 97.6 77 16 147/92 (110) 99 07/07/17 12:47 98.0 90 16 139/87 (104) 98 I/O 07/07/17 07/07/17 07/07/17 07/08/17 07/08/17 07/08/17 07:00 15:00 23:00 07:00 15:00 23:00 Intake Total 1000 ml 200 ml Balance 1000 ml 200 ml Intake Oral 200 ml IV Total 1000 ml Result Diagram: 07/06/17 0432 07/07/17 0435 Objective Remarks GENERAL: Patient sitting up in bed. Appears comfortable. Alert and oriented 3. No change on exam today SKIN: Warm and dry. HEAD: Normocephalic. EYES: No scleral icterus. No injection or drainage. NECK: Supple, trachea midline. No JVD. CARDIOVASCULAR: Regular rate and rhythm without murmurs, gallops, or rubs. RESPIRATORY: Breath sounds equal bilaterally. No accessory muscle use. GASTROINTESTINAL: Abdomen soft, non-tender, nondistended. MUSCULOSKELETAL: No cyanosis, or edema. BACK: Nontender without obvious deformity. No CVA tenderness. A/P Assessment and Plan //Chest Pain: Atypical, likely referred pain from RUQ. serial CE neg x 3. ALLERGY to ASA. Lipid Profile shows Tg 366, LDL 167, HDL 34.8. Place him on low fat diet. , Hgb A1c 5.3. Morphine prn. = Due to inverted T waves which are new, cardiology consulted. Recommend CT coronary angiogram which has been ordered. Follow-up CT coronary angiogram = Echocardiogram pending. //Acute kidney injury. Creatinine 1.4 from 1.0 on admission. IV fluids were off. And patient had been n.p.o. for procedures. Will increase IV fluids. Continue to monitor = Repeat creatinine pending. //Abdominal Pain: RUQ pain, associated w/ nausea/vomiting. CT Abd/Pelvis w/ contracted gallbladder. Gallbladder US shows unremarkable gallbladder. Pt still symptomatic. Will order HIDA scan. Consult GI. LFTs and lipase wnl. Analgesics/antiemetics as needed. On Truvada for HIV prophylaxis. = GI following. They would like to do EGD if cardiac workup negative. //DVT Prophylaxis: SCD/Teds. Discharge Planning pending cardiology and gastroneurology clearance Preet Madden MD Jul 08, 2017 12:29
--- NOTE | 2017-07-08 12:53 | HHI.GIFU ---
Subjective Remarks Pt states abdominal pain is improved since being started on medication by our service Some nausea, no emesis Has been NPO for 2D echo today States he would really like to go home and follow up outpatient (Gavi Medina) Objective Vitals I&O Vital Signs Date Time Temp Pulse Resp B/P (MAP) Pulse Ox O2 Delivery O2 Flow Rate FiO2 07/08/17 06:57 98.5 75 16 123/76 (92) 95 07/08/17 04:10 98.5 75 16 97/52 (67) 100 07/08/17 00:41 18 07/07/17 22:42 98.4 81 16 110/62 (78) 99 07/07/17 15:56 97.6 77 16 147/92 (110) 99 I/O 07/07/17 07/07/17 07/07/17 07/08/17 07/08/17 07/08/17 07:00 15:00 23:00 07:00 15:00 23:00 Intake Total 1000 ml 200 ml Balance 1000 ml 200 ml Intake Oral 200 ml IV Total 1000 ml Imaging Last Impressions Hepatobiliary Scan Nuclear Medicine 07/07/17 0000 Signed Impressions: Service Date/Time: Friday, July 07, 2017 08:32 - CONCLUSION: Symptomatology with CCK potentially indicative of biliary dyskinesia. Normal hepatobiliary kinetics Pelon Hernandez MD Coronary Angiography CT 07/07/17 0000 Signed Impressions: Service Date/Time: Friday, July 07, 2017 17:59 - CONCLUSION: Normal coronary arteries. Compa Peterson MD Gall Bladder Ultrasound 07/06/17 0000 Signed Impressions: Service Date/Time: Thursday, July 06, 2017 08:08 - CONCLUSION: 1. Mild hepatomegaly. 2. Poor visualization of pancreas due to shadowing bowel gas. 3. Unremarkable gallbladder. Micah Willett MD Chest X-Ray 07/05/17 1540 Signed Impressions: Service Date/Time: Wednesday, July 05, 2017 15:57 - CONCLUSION: No acute disease. Rufus Garland MD FACR Abdomen/Pelvis CT 07/05/17 0000 Signed Impressions: Service Date/Time: Wednesday, July 05, 2017 19:53 - CONCLUSION: Small contracted gallbladder otherwise negative Rufus Garland MD FACR Physical Exam HEENT: Normocephalic; atraumatic CHEST: Even/unlabored CARDIAC: RRR ABDOMEN: Soft, nondistended, nontender; bowel sounds active EXTREMITIES: No clubbing, cyanosis, or edema. SKIN: Normal; no rash; no jaundice. PUBLIC HEALTH INSPECTOR: No focal deficits; alert and oriented times three. (Gavi Medina) Assessment and Plan Plan Assessment: - Abdominal pain- When asked to localize pain points to RLQ abdomen, above umbilicus, and RUQ. States pain occurs at the same time. Aggravating factors are drinking a lot of water and sitting up. Pain is better when he lays on his side in the position. Also states when he presses in his RLQ feels the sensation like he has to urinate. Work up so far: HIDA scan --> Symptomatology with CCK potentially indicative of biliary dyskinesia. Normal hepatobiliary kinetics Gallbladder US --> Mild hepatomegaly. Poor visualization of pancreas due to shadowing bowel gas. Unremarkable gallbladder. CT abdomen and pelvis --> Small contracted gallbladder otherwise negative - Nausea and vomiting- intermittent over the past month, no relation to food. Denies hematemesis and coffee ground emesis. Reports taking Ibuprofen and Goody Powder daily for generalized pain. Denies ever having EGD or colonoscopy Abdominal pain and vomiting is not a new symptoms, pt states the reason he decided to come in the ER was due to chest palpitations, feeling like he was going to pass out, and chest pain. Cardiology work up seems to be priority at this time. Would likely benefit from an EGD given hx of N/V, frequent NSAIDs however, this can be done after cardiac work up. Regarding RLQ pain, nonspecific, positional, possibly related to adhesions after previous appendectomy? - Chest pain, palpitations- with changes in EKG since 2014- cardiology planning on 2-D echo and nuclear stress test (cant be done until 48 hours after HIDA) they suspect LVH (07/08) Pt has had negative CTA, cardiology planning on 2-D echo today, their note states if normal they are OK to DC pt. Pt states his stomach pains have improved since being started on medication by our service. Currently pt is on Protonix, Carafate, and Pepcid. States he would really like to go home today and does not want to spend another night in the hospital. He would like to follow up with our service outpatient Plan: OMER Protonix Carafate Pepcid OK to DC from a GI standpoint, pt can follow up outpatient regarding EGD We will sign off, please reconsult as needed Pt has been seen and examined by myself and Dr. Okeefe and this note is written on hsi behalf (Gavi Mednia) Physician Comments patient seen and examined agree with above monitor labs continue with current supportive care (Peng Okeefe MD) Gavi Medina Jul 08, 2017 12:53 Peng Okeefe MD Jul 08, 2017 23:08
[2017-07-08 13:58] LABS: BICARBONATE 26.7 MEQ/L (21.0-32.0); CALCIUM 9.6 MG/DL (8.5-10.1); CREATININE 1.22 MG/DL (0.60-1.30)
--- NOTE | 2017-07-08 14:58 | ECHRPT ---
Indication: Chest Pain CONCLUSIONS The left ventricular systolic function is low normal with an estimated ejection fraction in the rang e of 50- 55%. Wall thickness is normal. Normal left ventricular size. Mild thickening of the mitral valve leaflets. [id number] mitral valve regurgitation. There is mild tricuspid valve regurgitation. The estimated pulmonary arterial pressure is 28.5 mmHg. Mild pulmonary valve regurgitation. BP: 147 / 92 HR: 64 Rhythm: Sinus MEASUREMENTS (Male / Female) Normal Values Technical Quality:Fair 2D ECHO LV Diastolic Diameter PLAX 4.3 cm 4.2 - 5.9 / 3.9 - 5.3 cm LV Systolic Diameter PLAX 3.1 cm IVS Diastolic Thickness 1.1 cm 0.6 - 1.0 / 0.6 - 0.9 cm LVPW Diastolic Thickness 0.8 cm 0.6 - 1.0 / 0.6 - 0.9 cm LV Relative Wall Thickness 0.4 RV Internal Dim ED PLAX 2.9 cm LVOT Diameter 1.8 cm LA Systolic Diameter LX 3.6 cm 3.0 - 4.0 / 2.7 - 3.8 cm M-MODE Aortic Root Diameter MM 2.1 cm LA Systolic Diameter MM 4.0 cm LA Ao Ratio MM 1.9 AV Cusp Separation MM 1.4 cm DOPPLER AV Peak Velocity 97.7 cm/s AV Peak Gradient 3.8 mmHg LVOT Peak Velocity 79.6 cm/s LVOT Peak Gradient 2.5 mmHg AV Area Cont Eq pk 2.1 cm MV Area PHT 6.7 cm Mitral E Point Velocity 86.4 cm/s Mitral A Point Velocity 42.3 cm/s Mitral E to A Ratio 2.0 LV E' Lateral Velocity 13.3 cm/s Mitral E to LV E' Lateral Ratio 6.5 LV E' Septal Velocity 10.6 cm/s Mitral E to LV E' Septal Ratio 8.2 TR Peak Velocity 215.0 cm/s TR Peak Gradient 18.5 mmHg Right Atrial Pressure 10.0 mmHg Pulmonary Artery Systolic Pressu 28.5 mmHg Right Ventricular Systolic Press 28.5 mmHg FINDINGS LEFT VENTRICLE The left ventricular systolic function is low normal with an estimated ejection fraction in the rang e of 50- 55%. Wall thickness is normal. Normal left ventricular size. RIGHT VENTRICLE Normal right ventricular size and systolic function. LEFT ATRIUM The left atrial size is normal. RIGHT ATRIUM The right atrial size is normal. ATRIAL SEPTUM Normal atrial septal thickness without atrial level shunting by limited color doppler interrogation. AORTA The aortic root and proximal ascending aorta are normal in size on limited imaging. MITRAL VALVE Mild thickening of the mitral valve leaflets. [id number] mitral valve regurgitation. AORTIC VALVE Trileaflet aortic valve. No aortic valve stenosis or regurgitation. TRICUSPID VALVE Structurally normal tricuspid valve. There is mild tricuspid valve regurgitation. The estimated pulmonary arterial pressure is 28.5 mmHg. PULMONARY VALVE Mild pulmonary valve regurgitation. VESSELS The inferior vena cava is normal in size. PERICARDIUM No pericardial effusion. Efrain Elizondo MD, FACC (Electronically Signed) Final Date:08 July 2017 14:58
[2017-07-08 15:16] VITALS: BP 139/82; PULSE 81; RESP 18; TEMP 98.6; O2SAT 100
[2017-07-08] MEDS ORDERED: METO25TA3 PO (15:48)
[2017-07-08] MEDS ORDERED: PANT40TA3 PO (15:48)
--- NOTE | 2017-07-08 15:54 | HHI.DS ---
Discharge Summary Admission Date Jul 05, 2017 at 20:51 Discharge Date: Jul 08, 2017 Admitting Diagnosis atypical chest pain, r/o ACS, N/V, abdominal pain (1) Chest pain ICD Code: R07.9 - Chest pain, unspecified (2) Abdominal pain ICD Code: R10.9 - Unspecified abdominal pain Status: Acute Brief History - From Admission This is a 37-year-old male with a PMH of Anxiety, Depression, Bipolar Disorder, HTN and Hyperlipidemia who presented to the ER with multiple complaints including dizziness, palpitations, chest pain and abdominal pain. States symptoms have been intermittent for the last 2 days. Chest pain is substernal, intermittent, 8/10, non-radiating. Abdominal pain is in RUQ, severe, 9/10, associated w/ nausea, no vomiting. Reports h/o renal stones, feels symptoms are similar. On arrival, BP 154/93, HR 91, O2 sat 99% RA, Afebrile. CBC essentially unremarkable. Chemistry unremarkable. Troponin negative. INR 1.0. UA negative. Urine Drug Screen negative. [place] less than 0.1. CXR with no acute findings. CT Abdomen/Pelvis with small contracted gallbladder. Of note, patient is on Truvada for prophylaxis as is HIV+. LFTs normal. CBC/BMP: 07/06/17 0432 07/08/17 1329 Significant Findings Laboratory Tests Test 07/05/17 15:55 07/05/17 16:49 07/06/17 00:30 07/06/17 04:32 Monocytes (%) (Auto) 10.8 % (0.0-8.0) 10.4 % (0.0-8.0) Activated Partial Thromboplast Time 23.0 SEC (24.3-30.1) Random Glucose 132 MG/DL (74-106) Troponin I LESS THAN 0.02 NG/ML LESS THAN 0.02 NG/ML LESS THAN 0.02 NG/ML [place] Level LESS THAN 0.1 MEQ/L Lymphocytes (%) (Auto) 45.7 % (9.0-44.0) Albumin 3.2 GM/DL (3.4-5.0) Calcium Level 8.4 MG/DL (8.5-10.1) Alkaline Phosphatase 44 U/L (45-117) Estimat Glomerular Filtration Rate 77 ML/MIN (>89) Triglycerides Level 366 MG/DL (42-150) Cholesterol Level 275 MG/DL (120-200) LDL Cholesterol 167 MG/DL (0-99) HDL Cholesterol 34.8 MG/DL (40.0-60.0) Test 07/07/17 04:35 07/08/17 13:29 Creatinine 1.37 MG/DL (0.60-1.30) Random Glucose 118 MG/DL (74-106) Total Protein 6.2 GM/DL (6.4-8.2) Albumin 2.9 GM/DL (3.4-5.0) Calcium Level 8.4 MG/DL (8.5-10.1) Estimat Glomerular Filtration Rate 70 ML/MIN (>89) 81 ML/MIN (>89) Imaging Last Impressions Hepatobiliary Scan Nuclear Medicine 07/07/17 0000 Signed Impressions: Service Date/Time: Friday, July 07, 2017 08:32 - CONCLUSION: Symptomatology with CCK potentially indicative of biliary dyskinesia. Normal hepatobiliary kinetics Pelon Hernandez MD Coronary Angiography CT 07/07/17 0000 Signed Impressions: Service Date/Time: Friday, July 07, 2017 17:59 - CONCLUSION: Normal coronary arteries. Compa Peterson MD Gall Bladder Ultrasound 07/06/17 0000 Signed Impressions: Service Date/Time: Thursday, July 06, 2017 08:08 - CONCLUSION: 1. Mild hepatomegaly. 2. Poor visualization of pancreas due to shadowing bowel gas. 3. Unremarkable gallbladder. Micah Willett MD Chest X-Ray 07/05/17 1540 Signed Impressions: Service Date/Time: Wednesday, July 05, 2017 15:57 - CONCLUSION: No acute disease. Rufus Garland MD FACR Abdomen/Pelvis CT 07/05/17 0000 Signed Impressions: Service Date/Time: Wednesday, July 05, 2017 19:53 - CONCLUSION: Small contracted gallbladder otherwise negative Rufus Garland MD FACR PE at Discharge GENERAL: Pleasant young black male, laying in bed a bit somnolent (got some pain meds) HEENT: EOMI. CARDIOVASCULAR: Regular rate and rhythm. No obvious murmurs to auscultation. No chest tenderness to palpation. RESPIRATORY: No obvious wheezing. Clear to auscultation. Breath sounds equal bilaterally. does have a dry cough at times has some phlegm GASTROINTESTINAL: Abdomen soft, tenderness to palpation RUQ, appears a bit distended but some voluntary guarding when palpating the RUQ. No CVA tenderness. BS normal. MUSCULOSKELETAL: Extremities without edema. No obvious deformities. NEUROLOGICAL: Awake, alert and oriented. Moving both upper and lower extremities spontaneously. Hospital Course //Chest Pain: Atypical, likely referred pain from RUQ. serial CE neg x 3. ALLERGY to ASA. Lipid Profile shows Tg 366, LDL 167, HDL 34.8. Place him on low fat diet. , Hgb A1c 5.3. Morphine prn. = Due to inverted T waves which are new, cardiology consulted. Recommend CT coronary angiogram which has been ordered. Follow-up CT coronary angiogram = Echocardiogram pending. //Acute kidney injury. Creatinine 1.4 from 1.0 on admission. IV fluids were off. And patient had been n.p.o. for procedures. Will increase IV fluids. Continue to monitor = Repeat creatinine pending. //Abdominal Pain: RUQ pain, associated w/ nausea/vomiting. CT Abd/Pelvis w/ contracted gallbladder. Gallbladder US shows unremarkable gallbladder. Pt still symptomatic. Will order HIDA scan. Consult GI. LFTs and lipase wnl. Analgesics/antiemetics as needed. On Truvada for HIV prophylaxis. = GI following. They would like to do EGD if cardiac workup negative. //DVT Prophylaxis: SCD/Teds. Discharge Planning pending cardiology and gastroneurology clearance Preet Madden MD Jul 08, 2017 12:29 Addendum: Preet Madden MD on 07/08/17 @ 15:52 Discharge home in good condition. Activity ad yonathan. Continue diabetic diet. Please see discharge medication reconciliation. Follow-up with cardiology, primary care, gastroenterology as outpatient. Pt Condition on Discharge: Good Discharge Disposition: Discharge Home Discharge Time: > 30 minutes Discharge Instructions DIET: Follow Instructions for: Diabetic Diet Activities you can perform: Regular-No Restrictions Follow up Referrals: Cardiology - 3 Weeks with Efrain Elizondo MD Gastroenterology - 2 Weeks with Shirley Bauer MD PCP Follow-up - 1 Week with Tyson Matias D.o. New Medications: Metoprolol Tartrate (Metoprolol Tartrate) 25 Mg Tab 12.5 MG PO Q12HR for Blood Pressure Management for 30 Days, TAB Pantoprazole (Pantoprazole) 40 Mg Tab 40 MG PO DAILY for Reflux for 30 Days, #30 TAB Continued Medications: Atorvastatin (Atorvastatin) 40 Mg Tab 40 MG PO HS for Cholesterol Management, #30 TAB 0 Refills Buspirone (Buspirone) 10 Mg Tab 10 MG PO TID for Anxiety, TAB 0 Refills Emtricitabine-Tenofovir Alafenamide (Descovy) 200-25 mg Tab 1 TAB PO DAILY for Mgmt Viral Infection, #30 TAB 0 Refills Hydrochlorothiazide (Hydrochlorothiazide) 12.5 Mg Tab 12.5 MG PO DAILY, #30 TAB 0 Refills [place] Carbonate ([place] Carbonate) 300 Mg Cap 300 MG PO BID, CAP 0 Refills Quetiapine XR (Seroquel XR) 150 Mg Tab 150 MG PO HS, #30 TAB 0 Refills Risperidone (Risperidone) 1 Mg Tab 1 MG PO HS, #30 TAB 0 Refills Discontinued Medications: Amlodipine (Amlodipine) 5 Mg Tab 5 MG PO DAILY for Blood Pressure Management, #30 TAB 0 Refills Preet Madden MD Jul 08, 2017 15:53
== END 2017-07-08 17:55 | disposition home or self-care (01) ==
LOC: NEPE 15:29 → NEDA 20:51 → NEPFCDU 22:14
PROVIDERS: ADMIT Internal Medicine; ATTEND Internal Medicine
DX: R07.89 Other chest pain (principal); R10.11 Right upper quadrant pain; R11.2 Nausea with vomiting, unspecified; R42 Dizziness and giddiness; R00.2 Palpitations; R50.9 Fever, unspecified; K59.00 Constipation, unspecified; R94.31 Abnormal electrocardiogram [ECG] [EKG]; R05 Cough; I10 Essential (primary) hypertension; E78.00 Pure hypercholesterolemia, unspecified; R16.0 Hepatomegaly, not elsewhere classified; R73.03 Prediabetes; N17.9 Acute kidney failure, unspecified; F31.9 Bipolar disorder, unspecified; F41.9 Anxiety disorder, unspecified; H91.91 Unspecified hearing loss, right ear
CPT/HCPCS: 71046; 74177; 75574; 76705; 78227; 80048; 80053; 80061; 80178; 80307; 81001; 82040; 82247; 82550; 82552; 82948; 83036; 83690; 84075; 84100; 84155; 84443; 84450; 84460; 84484; 85025; 85610; 85730; 87491; 87591; 93005; 93306; 96360; 96361; 96374; 96375; 96376; 99285; A9537; G0378; J2270; J2405; J2805; J7030; Q9967

== ENCOUNTER 2017-09-06 00:28 | Emergency (ER) | payer MEDICAID ==
[~2017-09-06] VITALS: Ht 177.8 cm; Wt 80.0 kg
[~2017-09-06 00:28] MED LIST changes: -AMLO5TAB2 PO; +EMTR1TAB4 PO; +METO25TA3 PO; +PANT40TA3 PO; -TRUV200300 PO; -VENTAER INH
[2017-09-06 00:40] VITALS: BP 154/102; PULSE 112; RESP 24; TEMP 98.6; O2SAT 97
[2017-09-06] MEDS ORDERED: MORPHINE SULFATE 4 MG/ML INJ IV PUSH ONE (00:45)
[2017-09-06] MEDS ORDERED: ceFAZolin 2 GM PREMIX 50 ML IV ONE (00:45)
[2017-09-06] MEDS ORDERED: TETANUS/DIPHTHERIA TOXOID ADULT 0.5 ML VIAL IM ONE (00:45)
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
[2017-09-06 01:30] VITALS: BP 161/93; PULSE 101; RESP 22; O2SAT 98
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
[2017-09-06 01:36] LABS: AUTOMATED NEUTROPHIL # 2.7 TH/MM3 (1.8-7.7); BASOPHIL % 0.8 % (0.0-2.0); EOSINOPHIL % 0.5 % (0.0-4.0); HEMATOCRIT 47.3 % (39.0-51.0); HEMOGLOBIN 16.4 GM/DL (13.0-17.0); LYMPH % 30.8 % (9.0-44.0); LYMPHOCYTE # 1.5 TH/MM3 (1.0-4.8); MEAN CELL VOLUME 92.1 FL (80.0-100.0); MEAN CORPUSCULAR HGB CONC 34.7 % (32.0-36.0); MEAN PLATELET VOLUME 8.5 FL (7.0-11.0); MONO % 11.2 % (0.0-8.0); MONOCYTE # 0.5 TH/MM3 (0-0.9); NEUT % 56.7 % (16.0-70.0); PLATELET COUNT 417 TH/MM3 (150-450); RED BLOOD COUNT 5.13 MIL/MM3 (4.50-5.90); RED CELL DISTRIBUTION WIDTH 13.1 % (11.6-17.2); WHITE BLOOD COUNT 4.7 TH/MM3 (4.0-11.0)
[2017-09-06 02:00] VITALS: BP 156/88; PULSE 104; RESP 20; O2SAT 98
[2017-09-06] MEDS ORDERED: LIDOCAINE 1%/EPINEPHrine 1:100,000 SOLN 20 ML VIAL INFIL ONE (02:00)
[2017-09-06 02:14] LABS: BICARBONATE 24.4 MEQ/L (21.0-32.0); CALCIUM 9.6 MG/DL (8.5-10.1); CREATININE 1.22 MG/DL (0.60-1.30)
[2017-09-06] MEDS ORDERED: MORPHINE SULFATE 8 MG/ML INJ ONE (02:20)
[2017-09-06] MEDS ORDERED: CEPH-460 PO (02:26)
[2017-09-06] MEDS ORDERED: HYDR-3516 PO (02:26)
[2017-09-06 02:30] VITALS: BP 161/83; PULSE 101; RESP 22; O2SAT 98
[2017-09-06 03:00] VITALS: BP 139/90; PULSE 99; RESP 16; O2SAT 100
== END 2017-09-06 04:31 | disposition home or self-care (01) ==
LOC: NEPD 00:28
DX: S97.81XA Crushing injury of right foot, initial encounter (principal); S51.811A Laceration without foreign body of right forearm, initial encounter; R20.0 Anesthesia of skin; Y33.XXXA Other specified events, undetermined intent, initial encounter; Z23 Encounter for immunization
CPT/HCPCS: 12001; 73090; 73130; 73630; 80048; 85025; 90471; 90714; 96365; 96375; 99284; E0113; J0690; J2270